=== PATIENT | female | born 1955 | race Caucasian/White ===

== ENCOUNTER 2016-12-11 23:44 | Inpatient (IN) | payer MEDICARE, MEDICAID ==
--- NOTE | 2016-12-12 00:09 | ED Physician Chart ---
Chief Complaint/HPI - Patient Information Date Seen:: 12/12/16 Time Seen:: 00:00 Chief Complaint:: S/P Fall History of Present Illness:: pt had a syncope event resulting in an unwitnessed fall 5 hours [employer] with head injuryl no report of LOC, ALOC, AMS, H/As, neck pain, C/P, SOB, Abd. Pain, A/N/V /D/C, fevsr, chills, or urinary s/s Allergies:: Allergies Allergy/AdvReac Type Severity Reaction Status Date / Time MDX PCN (penicillin) Allergy Unknown Verified 04/13/12 01:04 [PCN (penicillin)] Historian:: Patient, EMS Review:: Nurse's Note Reviewed, EMS run form Reviewed, Transfer documents Reviewed Review of Systems - Review of Systems General/Constitutional: Fever, Chills, No weight loss, No weakness, No diaphoresis, No edema, No loss of appetite Skin: Skin lesions, No rash, No bruising Head: No headache, No light-headedness Eyes: No loss of vision, No pain, No diplopia ENT: No earache, No nasal drainage, No sore throat, No tinnitus Neck: No neck pain, No swelling, No thyromegaly, No stiffness, No mass noted Cardio Vascular: No chest pain, No palpitations, No PND, No orthopnea, No edema Pulmonary: No SOB, No cough, No sputum, No wheezing GI: No nausea, No vomiting, No diarrhea, No pain, No melena, No hematochezia, No constipation, No hematemesis G/U: No dysuria, No frequency, No hematuria Musculoskeletal: No bone or joint pain, No back pain, No muscle pain Endocrine: No polyuria, No polydipsia Psychiatric: Prior psych history, Depression, Anxiety, No suicidal ideation, No homicidal ideation, Auditory hallucination, Visual hallucination Hematopoietic: No bruising, No lymphadenopathy Allergic/Immuno: No urticaria, No angioedema Neurological: Syncope, No focal symptoms, Weakness, No paresthesia, Headache, No seizure, Dizziness, Confusion, Vertigo Past Medical History - Past Medical History Obtainable: Yes Past Medical History: HTN, CAD, Asthma/COPD, Dyslipidemia, Dementia Family History: Heart disease, Diabetes Melitus, HTN Social History: Non Smoker, No Alcohol, No Drug Use, Single, Care Facility Surgical History: None Psychiatricy History: Depression, Schizophrenia, Bipolar, Dementia Medication: Reviewed Family Medical History - Family Member Mother History Unknown: Yes Physical Exam - Physical Examination General/Constitutional: Awake, Well-developed, well-nourished, Alert, No distress, GCS 15, Non-toxic appearing, Ambulatory Other Head comments:: Right Eyebrow Supreficial skin-tear type of abrasions; no FBs; good NV functions Eyes: Lids, conjuctiva normal, PERRL, EOMI Skin: Nl inspection, No rash, No skin lesions, No ecchymosis, Well hydrated, No lymphadenopathy ENMT: External ears, nose nl, Nasal exam nl, Lips, teeth, gums nl Neck: Nontender, Full ROM w/o pain, No JVD, No nuchal rigidity, No bruit, No mass, No stridor Respiratory: Nl effort/Exclusion, Clear to Auscultation, No Wheeze/Rhonchi/Rales Cardio Vascular: RRR, No murmur, gallop, rubs, NL S1 S2 GI: No tenderness/rebounding/guarding, No organomegaly, No hernia, Normal BS's, Nondistended, No mass/bruits, No McBurney tenderness : No CVA tenderness Extremities: No tenderness or effusion, Full ROM, normal strength in all extremities, No edema, Normal digits & nails Neuro/Psych: Alert/oriented, DTR's symmetric, Normal sensory exam, Normal motor strength, Judgement/insight normal, Mood normal, Normal gait, No focal deficits Other Neuro/Psych comments:: Confused and disoriented Misc: normal gait, Normal back, No paraspinal tenderness Labs/Radiology/EKG Results - Lab Results Results: WBC: 3.9; BUN: 32 - EKG Interpretations EKG Time:: 00:33 Rate & Rhythm: 60; NSR Comments:: IVCD; non-specific st-t changes ED Septic Shock - . Is Septic Shock (SBP<90, OR Lactate>4 mmol\L) present?: No Reassessment (Disposition) - Reassessment Reassessment Condition:: Improved - Diagnosis Diagnosis:: S/P Fall; Head Injury; Syncope; - Aftercare/Follow up Instructions Aftercare/Follow-Up Instructions:: Counseled pt regarding lab results/diagnosis & need follow up, Counseled pt & family regarding lab results/diagnosis & need follow up - Patient Disposition Discharge/Transfer:: Acute Care w/in this hosp Admitted to:: Telemetry Condition at Disposition:: Stable, Improved
[2016-12-12 00:33] LABS: % BASOPHILS 0.1 % (0.0-2.0); % EOSINOPHILS 2.1 % (0.0-5.0); % LYMPHOCYTES 43.3 % (20.0-50.0); % MONOCYTES 10.1 % (2.0-10.0); % NEUTROPHILS 44.4 % (40.0-80.0); HEMATOCRIT 40.9 % (35.0-45.0); HEMOGLOBIN 13.5 gm/dL (11.7-15.5); MEAN CELL VOLUME 90.8 fl (81-100); MEAN PLATELET VOLUME 8.6 fl; NEUTROPHILE ABSOLUTE 1.7 Th/cmm (1.8-8.0); PLATELET COUNT 172 Th/cmm (150-400); RED CELL DISTRIBUTION WIDTH 13.5 % (11.5-20.0)
[2016-12-12 00:34] LABS: WHITE BLOOD COUNT 3.9 Th/cmm (4.8-10.8)
[2016-12-12 00:44] LABS: ANION GAP 7.5 (7.0-16.0); BUN - UREA NITROGEN 32 mg/dL (7-25); BUN/CREATININE RATIO 35.6; CALCIUM SERUM 10.1 mg/dL (8.6-10.3); CARBON DIOXIDE 34.1 mEq/L (21.0-31.0); CHLORIDE 100 mEq/L (98-107); CHOLESTEROL 196 mg/dL (<200); CREATININE - SERUM 0.9 mg/dL (0.6-1.2); GLUCOSE 92 mg/dL (70-105); POTASSIUM SERUM 3.6 mEq/L (3.5-5.1); PROTHROMBIN TIME (TEST) 10.4 SECONDS (9.5-11.5); SODIUM SERUM 138 mEq/L (136-145); TRIGLYCERIDES 213 mg/dL (<150)
[2016-12-12 00:59] LABS: TROP I < 0.01 ng/mL (0.01-0.05)
[2016-12-12 01:01] LABS: BNP 31.1 pg/mL (5.0-100.0)
[2016-12-12] MEDS ORDERED: Levofloxacin 500mg/100mL 500 MG/100 ML BAG IV ONE ×2 (01:51→01:54)
[2016-12-12 02:21] LABS: URINE BILIRUBIN NEGATIVE (NEGATIVE); URINE BLOOD NEGATIVE (NEGATIVE); URINE GLUCOSE (UA) NEGATIVE (NEGATIVE); URINE KETONE NEGATIVE (NEGATIVE); URINE PROTEIN NEGATIVE (NEGATIVE)
[2016-12-12 02:23] LABS: URINE COLOR YELLOW
[2016-12-12 02:24] LABS: URINE BACTERIA FEW /hpf (NONE SEEN); URINE EPITHELIAL CELLS FEW /lpf (FEW); URINE RBC 0-2 /hpf (0-5); URINE WBC 0-2 /hpf (0-5)
[2016-12-12 05:54] VITALS: BP 104/65
[2016-12-12] MEDS ORDERED: Ipratropium Neb 0.5 mg/2.5 mL UD IH PRN (07:23)
[2016-12-12] MEDS ORDERED: guaiFENesin 200 MG/10 ML UDC PO PRN (07:23)
[2016-12-12] MEDS ORDERED: Albuterol Nebulizer 2.5mg/3mL HHN PRN (07:23)
[2016-12-12] MEDS ORDERED: FENOFIBRATE 54 MG PO SCH (09:00)
--- NOTE | 2016-12-12 10:00 | Diagnostic Imaging Report ---
CHEST X-RAY: AP view INDICATION: pain COMPARISON: None FINDINGS: Suboptimal lung volumes are seen with increased interstitial lung markings. A right-sided SPOT MAN shunt is noted. No focal consolidation or effusions. Mild cardiomegaly is noted with atherosclerosis. Degenerative changes of the spine are noted with scoliosis. IMPRESSION: Suboptimal lung volumes with increased initial lung markings suggestive of chronic lung changes. No focal consolidation identified. When clinically feasible, PA and lateral views may be obtained for further assessment. Mild cardiomegaly with atherosclerosis Spinal scoliosis.
[2016-12-12] MEDS: Lactulose 10 Gm/15 mL 30mL UDC PO SCH (10:11)
[2016-12-12] MEDS: Multivitamin w/ Minerals Tab PO SCH (10:11)
[2016-12-12] MEDS: Dextromethorphan/Quinidine 20mg/10mg Cap PO SCH ×2 (10:11→21:33)
--- NOTE | 2016-12-12 10:19 | Diagnostic Imaging Report ---
Head CT without intravenous contrast Indication: Trauma Comparison: None Technique: Axial images were obtained from the vertex to the skull base without IV contrast. Coronal reconstructions were made. Total DLP: 551, [id number] FINDINGS: Images of the brain obtained without contrast demonstrate a right frontal approach shunt catheter terminating the within the frontal horn of the left lateral ventricle ventricle. Mild encephalomalacia is seen along the shunt track site. There is no evidence of an acute hemorrhage. The ventricles and basal cisterns are patent. No mass effect or midline shift. There is soft tissue swelling seen along the right frontal scalp. No evidence of a skull fracture. IMPRESSION: Right frontal soft tissue scalp injury. No evidence of a skull fracture. No evidence of an acute intracranial hemorrhage. Right frontal approach shunt catheter with tip terminating within the frontal horn of the left lateral ventricle. No evidence of hydrocephalus Encephalomalacia seen along the shunt tract site.
[2016-12-12] MEDS ORDERED: VTE Chemical Prophylaxis Screen/Admission MC PRN (11:45)
--- NOTE | 2016-12-12 13:12 | Internal Medicine Prog Note ---
Internal Medicine Subjective - Subjective Service Date: 12/12/16 ([facility] [id number]) Internal Medicine Objective - Results Result Diagrams: 12/12/16 00:18 12/12/16 00:18 Recent Labs: Laboratory Last Values WBC 3.9 Th/cmm (4.8-10.8) L D 12/12/16 00:18 RBC 4.50 Mil/cmm (3.80-5.10) 12/12/16 00:18 Hgb 13.5 gm/dL (11.7-15.5) 12/12/16 00:18 Hct 40.9 % (35.0-45.0) 12/12/16 00:18 MCV 90.8 fl (81-100) 12/12/16 00:18 MCH 30.0 pg (27.0-31.0) 12/12/16 00:18 MCHC Differential 33.0 pg (28.0-36.0) 12/12/16 00:18 RDW 13.5 % (11.5-20.0) 12/12/16 00:18 Plt Count 172 Th/cmm (150-400) 12/12/16 00:18 MPV 8.6 fl 12/12/16 00:18 Neutrophils % 44.4 % (40.0-80.0) 12/12/16 00:18 Lymphocytes % 43.3 % (20.0-50.0) 12/12/16 00:18 Monocytes % 10.1 % (2.0-10.0) H 12/12/16 00:18 Eosinophils % 2.1 % (0.0-5.0) 12/12/16 00:18 Basophils % 0.1 % (0.0-2.0) 12/12/16 00:18 PT 10.4 SECONDS (9.5-11.5) 12/12/16 00:18 INR 1.00 (0.5-1.4) 12/12/16 00:18 Sodium 138 mEq/L (136-145) 12/12/16 00:18 Potassium 3.6 mEq/L (3.5-5.1) 12/12/16 00:18 Chloride 100 mEq/L (98-107) 12/12/16 00:18 Carbon Dioxide 34.1 mEq/L (21.0-31.0) H 12/12/16 00:18 Anion Gap 7.5 (7.0-16.0) 12/12/16 00:18 BUN 32 mg/dL (7-25) H 12/12/16 00:18 Creatinine 0.9 mg/dL (0.6-1.2) 12/12/16 00:18 Est GFR ( Amer) > 60.0 ml/min (>90) 12/12/16 00:18 Est GFR (Non-Af Amer) > 60.0 ml/min 12/12/16 00:18 BUN/Creatinine Ratio 35.6 12/12/16 00:18 Glucose 92 mg/dL (70-105) 12/12/16 00:18 Whole Bld Lactic Acid 0.91 mmol/L (0.60-1.99) 12/12/16 00:18 Calcium 10.1 mg/dL (8.6-10.3) 12/12/16 00:18 Creatine Kinase 20 U/L (30-223) L 12/12/16 00:18 Troponin I < 0.01 ng/mL (0.01-0.05) L 12/12/16 00:18 B-Natriuretic Peptide 31.1 pg/mL (5.0-100.0) 12/12/16 00:18 Triglycerides 213 mg/dL (<150) H 12/12/16 00:18 Cholesterol 196 mg/dL (<200) 12/12/16 00:18 LDL Cholesterol Direct 130 mg/dL (75-193) 12/12/16 00:18 HDL Cholesterol 39 mg/dL (23-92) 12/12/16 00:18 Urine Source CLEAN C 12/12/16 02:00 Urine Color YELLOW 12/12/16 02:00 Urine Clarity CLEAR (CLEAR) 12/12/16 02:00 Urine pH 7.0 (4.6 - 8.0) 12/12/16 02:00 Ur Specific [place] 1.010 (1.005-1.030) 12/12/16 02:00 Urine Protein NEGATIVE mg/dL (NEGATIVE) 12/12/16 02:00 Urine Glucose (UA) NEGATIVE mg/dL (NEGATIVE) 12/12/16 02:00 Urine Ketones NEGATIVE mg/dL (NEGATIVE) 12/12/16 02:00 Urine Blood NEGATIVE (NEGATIVE) 12/12/16 02:00 Urine Nitrate NEGATIVE (NEGATIVE) 12/12/16 02:00 Urine Bilirubin NEGATIVE (NEGATIVE) 12/12/16 02:00 Urine Urobilinogen 1.0 E.U./dL (0.2 - 1.0) 12/12/16 02:00 Ur Leukocyte Esterase NEGATIVE (NEGATIVE) 12/12/16 02:00 Urine RBC 0-2 /hpf (0-5) 12/12/16 02:00 Urine WBC 0-2 /hpf (0-5) 12/12/16 02:00 Ur Epithelial Cells FEW /lpf (FEW) 12/12/16 02:00 Urine Bacteria FEW /hpf (NONE SEEN) 12/12/16 02:00 - Physical Exam Vitals and I&O: Vital Signs Temp 97 F 12/12/16 08:00 Pulse 50 12/12/16 08:00 Resp 18 12/12/16 08:00 BP 110/86 12/12/16 08:00 Pulse Ox 98 12/12/16 08:00 Intake & Output 12/11/16 12/12/16 12/12/16 18:59 06:59 18:59 Intake Total 240 Balance 240 Weight (lbs) 148 lb 14.4 oz 148 lb 14.4 oz Intake: Oral 240 Other: # Voids 1 1 # Bowel Movements 0 0 Active Medications: Current Medications Acetaminophen (Tylenol) 650 mg PO Q4H PRN PRN Reason: Pain Or Fever above 101 Stop: 02/10/17 07:22 Albuterol Sulfate (Albuterol 2.5mg/3ml Neb Ud) 2.5 mg HHN Q2HRT PRN PRN Reason: Shortness of Breath or Wheeze Stop: 02/10/17 07:22 Aspirin (Ecotrin) 81 mg PO DAILY [facility] Stop: 02/10/17 08:59 Last Admin: 12/12/16 10:10 Dose: Not Given Benztropine Mesylate (Cogentin) 1 mg PO HS [facility] Stop: 02/10/17 20:59 Cholecalciferol (Vitamin D3) 1,000 iu PO DAILY [facility] Stop: 02/10/17 08:59 Last Admin: 12/12/16 10:10 Dose: Not Given Dextromethorphan/Quinidine (Nuedexta 20mg-10mg) 1 cap PO Q12HR [facility] Stop: 02/10/17 08:59 Last Admin: 12/12/16 10:11 Dose: Not Given Divalproex Sodium (Depakote Dr) 750 mg PO BID [facility] PRN Reason: Protocol Stop: 02/10/17 08:59 Last Admin: 12/12/16 10:11 Dose: Not Given Guaifenesin (Robitussin) 200 mg PO Q4HR PRN PRN Reason: Cough or Congestion Stop: 02/10/17 07:22 Heparin Sodium (Porcine) (Heparin) 5,000 units SUBQ Q12HR [facility] Stop: 02/10/17 20:59 Dextrose/Sodium Chloride (D5-0.9%Ns) 1,000 mls @ 80 mls/hr IV .[id number] [facility] Stop: 02/10/17 07:29 Ipratropium [place] (Atrovent Neb 0.5mg/2.5ml) 0.5 mg IH Q2HRT PRN PRN Reason: Shortness of Breath or Wheeze Stop: 02/10/17 07:22 Lactulose (Cephulac) 20 gm PO DAILY [facility] Stop: 02/10/17 08:59 Last Admin: 12/12/16 10:11 Dose: Not Given Miscellaneous (Fenofibrate [Lofibra]) 54 mg PO DAILY [facility] Stop: 02/10/17 08:59 Last Admin: 12/12/16 10:44 Dose: Not Given Miscellaneous (Vte Chemical Prophylaxis Screen/ Admission) 1 ea [facility] PRN PRN PRN Reason: PROTOCOL Stop: 02/10/17 11:44 Ondansetron HCl (Zofran) 4 mg IV Q8H PRN PRN Reason: Nausea / Vomiting Stop: 02/10/17 07:22 Quetiapine Fumarate (Seroquel) 400 mg PO DAILY [facility] PRN Reason: Protocol Stop: 02/10/17 08:59 Last Admin: 12/12/16 10:10 Dose: 400 mg - Procedures Procedures: Procedures Procedure Code Date INJECT/INFUSE NEC 99.29 04/12/12 Internal Medicine Assmt/Plan - Assessment Assessment: SYNCOPE S/P FALL HYPERLIPIDEMIA COPD HTN ANEMIA MUSCLE WEAKNESS AHD
--- NOTE | 2016-12-12 13:19 | History & Physical ---
ADMIT DATE: 12/12/2016 CHIEF COMPLAINT: Status post fall, syncope. HISTORY OF PRESENT ILLNESS: This is a 61-year-old female who is a resident of [facility], who is brought here to [facility] due to an unwitnessed fall and syncopal episode. The patient was noted with head injury. Upon examination, the patient is awake, confused, combative. PAST MEDICAL HISTORY: COPD, convulsion, hypertension, anemia, muscle weakness, hyperlipidemia. PAST SURGICAL HISTORY: Unknown. SOCIAL HISTORY: The patient is a senior care resident, requiring 24-hour nursing care. REVIEW OF SYSTEMS: Unable to obtain due to patient's mental status. The patient is confused. PHYSICAL EXAMINATION: GENERAL: The patient is well developed, well nourished, no acute distress. VITAL SIGNS: Temperature 97, heart rate 50, blood pressure 110/86, respirations 18, O2 98%. HEENT: Head, normocephalic, atraumatic. NECK: Supple. No mass. LUNGS: Clear bilaterally. CARDIOVASCULAR: Regular rate and rhythm. ABDOMEN: Soft and nontender. LABORATORY DATA: WBC 3.9, H and H 13.5 and 40.9, platelets of 172. Sodium 130, potassium 3.6, chloride 100, BUN 32, creatinine 0.9. The patient had a troponin of 0.01, creatine kinase 20. The patient had a urinalysis done, negative for any UTI. The patient had a CT of the head done and the impression is right frontal soft tissue scalp injury, no evidence occult fracture. The patient also had a chest x-ray done and the impression is suboptimal lung volumes with increased interstitial lung markings suggestive of chronic lung changes, no focal consolidation identified. ASSESSMENT: Syncope, status post fall, hyperlipidemia, hypertension, convulsions, chronic obstructive pulmonary disease, muscle weakness, agitation. PLAN: The patient to have carotid ultrasound done and a 2D echocardiogram to be done. Fall precautions will be initiated. The patient will be kept on IV fluids for hydration. We will order PT eval and will continue to monitor this patient. JOB# [id number]
[2016-12-12] MEDS: Benztropine 1 MG TAB PO SCH (20:49)
[2016-12-13] MEDS: Dextromethorphan/Quinidine 20mg/10mg Cap PO SCH ×2 (09:10→21:46)
[2016-12-13] MEDS: Multivitamin w/ Minerals Tab PO SCH (09:10)
[2016-12-13] MEDS: Lactulose 10 Gm/15 mL 30mL UDC PO SCH (09:10)
[2016-12-13] MEDS: Fenofibrate, Micronized 134 mg Cap PO SCH (09:10)
--- NOTE | 2016-12-13 10:51 | Internal Medicine Prog Note ---
Internal Medicine Subjective - Subjective Service Date: 12/13/16 Patient seen and examined:: with staff Patient is:: awake, agitated, confused Per staff patient has:: no adverse event Internal Medicine Objective - Results Result Diagrams: 12/12/16 00:18 12/12/16 00:18 Recent Labs: Laboratory Last Values WBC 3.9 Th/cmm (4.8-10.8) L D 12/12/16 00:18 RBC 4.50 Mil/cmm (3.80-5.10) 12/12/16 00:18 Hgb 13.5 gm/dL (11.7-15.5) 12/12/16 00:18 Hct 40.9 % (35.0-45.0) 12/12/16 00:18 MCV 90.8 fl (81-100) 12/12/16 00:18 MCH 30.0 pg (27.0-31.0) 12/12/16 00:18 MCHC Differential 33.0 pg (28.0-36.0) 12/12/16 00:18 RDW 13.5 % (11.5-20.0) 12/12/16 00:18 Plt Count 172 Th/cmm (150-400) 12/12/16 00:18 MPV 8.6 fl 12/12/16 00:18 Neutrophils % 44.4 % (40.0-80.0) 12/12/16 00:18 Lymphocytes % 43.3 % (20.0-50.0) 12/12/16 00:18 Monocytes % 10.1 % (2.0-10.0) H 12/12/16 00:18 Eosinophils % 2.1 % (0.0-5.0) 12/12/16 00:18 Basophils % 0.1 % (0.0-2.0) 12/12/16 00:18 PT 10.4 SECONDS (9.5-11.5) 12/12/16 00:18 INR 1.00 (0.5-1.4) 12/12/16 00:18 Sodium 138 mEq/L (136-145) 12/12/16 00:18 Potassium 3.6 mEq/L (3.5-5.1) 12/12/16 00:18 Chloride 100 mEq/L (98-107) 12/12/16 00:18 Carbon Dioxide 34.1 mEq/L (21.0-31.0) H 12/12/16 00:18 Anion Gap 7.5 (7.0-16.0) 12/12/16 00:18 BUN 32 mg/dL (7-25) H 12/12/16 00:18 Creatinine 0.9 mg/dL (0.6-1.2) 12/12/16 00:18 Est GFR ( Amer) > 60.0 ml/min (>90) 12/12/16 00:18 Est GFR (Non-Af Amer) > 60.0 ml/min 12/12/16 00:18 BUN/Creatinine Ratio 35.6 12/12/16 00:18 Glucose 92 mg/dL (70-105) 12/12/16 00:18 Whole Bld Lactic Acid 0.91 mmol/L (0.60-1.99) 12/12/16 00:18 Calcium 10.1 mg/dL (8.6-10.3) 12/12/16 00:18 Creatine Kinase 20 U/L (30-223) L 12/12/16 00:18 Troponin I < 0.01 ng/mL (0.01-0.05) L 12/12/16 00:18 B-Natriuretic Peptide 31.1 pg/mL (5.0-100.0) 12/12/16 00:18 Triglycerides 213 mg/dL (<150) H 12/12/16 00:18 Cholesterol 196 mg/dL (<200) 12/12/16 00:18 LDL Cholesterol Direct 130 mg/dL (75-193) 12/12/16 00:18 HDL Cholesterol 39 mg/dL (23-92) 12/12/16 00:18 Urine Source CLEAN C 12/12/16 02:00 Urine Color YELLOW 12/12/16 02:00 Urine Clarity CLEAR (CLEAR) 12/12/16 02:00 Urine pH 7.0 (4.6 - 8.0) 12/12/16 02:00 Ur Specific [place] 1.010 (1.005-1.030) 12/12/16 02:00 Urine Protein NEGATIVE mg/dL (NEGATIVE) 12/12/16 02:00 Urine Glucose (UA) NEGATIVE mg/dL (NEGATIVE) 12/12/16 02:00 Urine Ketones NEGATIVE mg/dL (NEGATIVE) 12/12/16 02:00 Urine Blood NEGATIVE (NEGATIVE) 12/12/16 02:00 Urine Nitrate NEGATIVE (NEGATIVE) 12/12/16 02:00 Urine Bilirubin NEGATIVE (NEGATIVE) 12/12/16 02:00 Urine Urobilinogen 1.0 E.U./dL (0.2 - 1.0) 12/12/16 02:00 Ur Leukocyte Esterase NEGATIVE (NEGATIVE) 12/12/16 02:00 Urine RBC 0-2 /hpf (0-5) 12/12/16 02:00 Urine WBC 0-2 /hpf (0-5) 12/12/16 02:00 Ur Epithelial Cells FEW /lpf (FEW) 12/12/16 02:00 Urine Bacteria FEW /hpf (NONE SEEN) 12/12/16 02:00 - Physical Exam Vitals and I&O: Vital Signs Temp 98.9 F 12/13/16 06:00 Pulse 104 12/13/16 06:00 Resp 19 12/13/16 06:00 BP 119/78 12/13/16 06:00 Pulse Ox 94 12/13/16 06:00 Intake & Output 12/12/16 12/13/16 12/13/16 18:59 06:59 18:59 Intake Total 240 0 Balance 240 0 Weight (lbs) 148 lb 14.4 oz 148 lb 6.4 oz Intake: Oral 240 0 Other: # Voids 1 1 # Bowel Movements 0 0 Active Medications: Current Medications Acetaminophen (Tylenol) 650 mg PO Q4H PRN PRN Reason: Pain Or Fever above 101 Stop: 02/10/17 07:22 Albuterol Sulfate (Albuterol 2.5mg/3ml Neb Ud) 2.5 mg HHN Q2HRT PRN PRN Reason: Shortness of Breath or Wheeze Stop: 02/10/17 07:22 Aspirin (Ecotrin) 81 mg PO DAILY [facility] Stop: 02/10/17 08:59 Last Admin: 12/13/16 09:10 Dose: Not Given Benztropine Mesylate (Cogentin) 1 mg PO HS [facility] Stop: 02/10/17 20:59 Last Admin: 12/12/16 20:49 Dose: 1 mg Cholecalciferol (Vitamin D3) 1,000 iu PO DAILY [facility] Stop: 02/10/17 08:59 Last Admin: 12/13/16 09:10 Dose: Not Given Dextromethorphan/Quinidine (Nuedexta 20mg-10mg) 1 cap PO Q12HR [facility] Stop: 02/10/17 08:59 Last Admin: 12/13/16 09:10 Dose: Not Given Divalproex Sodium (Depakote Dr) 750 mg PO BID [facility] PRN Reason: Protocol Stop: 02/10/17 08:59 Last Admin: 12/13/16 09:10 Dose: Not Given Fenofibrate (Tricor) 134 mg PO QOD [facility] Stop: 02/10/17 08:59 Last Admin: 12/13/16 09:10 Dose: Not Given Guaifenesin (Robitussin) 200 mg PO Q4HR PRN PRN Reason: Cough or Congestion Stop: 02/10/17 07:22 Heparin Sodium (Porcine) (Heparin) 5,000 units SUBQ Q12HR [facility] Stop: 02/10/17 20:59 Last Admin: 12/13/16 09:11 Dose: Not Given Dextrose/Sodium Chloride (D5-0.9%Ns) 1,000 mls @ 80 mls/hr IV .[id number] [facility] Stop: 02/10/17 07:29 Ipratropium [place] (Atrovent Neb 0.5mg/2.5ml) 0.5 mg IH Q2HRT PRN PRN Reason: Shortness of Breath or Wheeze Stop: 02/10/17 07:22 Lactulose (Cephulac) 20 gm PO DAILY [facility] Stop: 02/10/17 08:59 Last Admin: 12/13/16 09:10 Dose: Not Given Lorazepam (Ativan) 1 mg IVP Q4HR PRN; Protocol PRN Reason: Agitation Stop: 02/11/17 06:15 Last Admin: 12/13/16 06:32 Dose: 1 mg Miscellaneous (Vte Chemical Prophylaxis Screen/ Admission) 1 ea [facility] PRN PRN PRN Reason: PROTOCOL Stop: 02/10/17 11:44 Ondansetron HCl (Zofran) 4 mg IV Q8H PRN PRN Reason: Nausea / Vomiting Stop: 02/10/17 07:22 Quetiapine Fumarate (Seroquel) 400 mg PO DAILY [facility] PRN Reason: Protocol Stop: 02/10/17 08:59 Last Admin: 12/13/16 09:10 Dose: 400 mg Trazodone HCl (Desyrel) 100 mg PO HS [facility] PRN Reason: Protocol Stop: 02/10/17 20:59 Last Admin: 12/12/16 20:49 Dose: 100 mg General: alert HEENT: NC/AT, PERRLA Neck: Supple Lungs: CTAB Cardiovascular: RRR, Normal S1, Normal S2 Abdomen: soft, non-tender, non-distended Neurological: alert - Procedures Procedures: Procedures Procedure Code Date INJECT/INFUSE NEC 99.29 04/12/12 Internal Medicine Assmt/Plan - Assessment Assessment: SYNCOPE S/P FALL HYPERLIPIDEMIA COPD HTN ANEMIA MUSCLE WEAKNESS AHD - Plan Plan: fall precautions psych f/u supplemental oxygen as needed bronchodilators as needed sitter for safety am labs
[2016-12-13 11:31] LABS: % BASOPHILS 0.9 % (0.0-2.0); % EOSINOPHILS 1.4 % (0.0-5.0); % LYMPHOCYTES 24.5 % (20.0-50.0); % NEUTROPHILS 62.2 % (40.0-80.0); HEMATOCRIT 39.7 % (35.0-45.0); HEMOGLOBIN 13.5 gm/dL (11.7-15.5); MEAN CELL VOLUME 88.5 fl (81-100); MEAN CORPUSCULAR HGB CONC 33.9 pg (28.0-36.0); MEAN PLATELET VOLUME 8.6 fl; NEUTROPHILE ABSOLUTE 2.5 Th/cmm (1.8-8.0); PLATELET COUNT 138 Th/cmm (150-400); RED BLOOD COUNT 4.49 Mil/cmm (3.80-5.10); RED CELL DISTRIBUTION WIDTH 13.2 % (11.5-20.0)
[2016-12-13 11:51] LABS: ANION GAP 7.9 (7.0-16.0); BUN - UREA NITROGEN 28 mg/dL (7-25); BUN/CREATININE RATIO 31.1; CALCIUM SERUM 9.9 mg/dL (8.6-10.3); CARBON DIOXIDE 27.8 mEq/L (21.0-31.0); CHLORIDE 105 mEq/L (98-107); CREATININE - SERUM 0.9 mg/dL (0.6-1.2); GLUCOSE 83 mg/dL (70-105); POTASSIUM SERUM 3.7 mEq/L (3.5-5.1); SODIUM SERUM 137 mEq/L (136-145)
[2016-12-13] MEDS: Benztropine 1 MG TAB PO SCH (21:45)
[2016-12-14 07:32] LABS: % BASOPHILS 2.2 % (0.0-2.0); % EOSINOPHILS 2.3 % (0.0-5.0); % LYMPHOCYTES 29.3 % (20.0-50.0); % MONOCYTES 10.1 % (2.0-10.0); % NEUTROPHILS 56.1 % (40.0-80.0); HEMATOCRIT 44.3 % (35.0-45.0); HEMOGLOBIN 14.8 gm/dL (11.7-15.5); MEAN CELL VOLUME 89.7 fl (81-100); MEAN CORPUSCULAR HEMOGLOBIN 29.9 pg (27.0-31.0); MEAN CORPUSCULAR HGB CONC 33.3 pg (28.0-36.0); MEAN PLATELET VOLUME 8.6 fl; NEUTROPHILE ABSOLUTE 2.5 Th/cmm (1.8-8.0); PLATELET COUNT 168 Th/cmm (150-400); RED BLOOD COUNT 4.94 Mil/cmm (3.80-5.10); RED CELL DISTRIBUTION WIDTH 13.4 % (11.5-20.0); WHITE BLOOD COUNT 4.4 Th/cmm (4.8-10.8)
[2016-12-14 07:48] LABS: ANION GAP 7.1 (7.0-16.0); BUN - UREA NITROGEN 26 mg/dL (7-25); CALCIUM SERUM 10.3 mg/dL (8.6-10.3); CARBON DIOXIDE 30.9 mEq/L (21.0-31.0); CHLORIDE 100 mEq/L (98-107); GLUCOSE 90 mg/dL (70-105); SODIUM SERUM 134 mEq/L (136-145)
[2016-12-14] MEDS: Dextromethorphan/Quinidine 20mg/10mg Cap PO SCH ×2 (09:02→21:10)
[2016-12-14] MEDS: Lactulose 10 Gm/15 mL 30mL UDC PO SCH (09:03)
[2016-12-14] MEDS: Multivitamin w/ Minerals Tab PO SCH (09:03)
--- NOTE | 2016-12-14 09:57 | Diagnostic Imaging Report ---
Exam: Arterial ultrasound examination of the extracranial carotid circulation. HISTORY: Stenosis. Findings: Real-time ultrasound examination of the extracranial carotid circulation was performed multiple planes utilizing color Doppler technique. The study demonstrates mild atherosclerotic plaque formation along the course of common carotid arteries bilaterally arising into the origin internal and external carotid arteries bilaterally. Mild to moderate plaquing is noted and cord bulbs bilaterally. The right internal carotid artery ratio 1.5 the left internal carotid artery ratio 0.84. IMPRESSION: No significant stenosis or alteration of flow of the extracranial carotid circulation bilaterally.
--- NOTE | 2016-12-14 12:21 | Consultation ---
DATE OF CONSULTATION: 12/14/2016 JUSTIFICATION FOR CONSULTATION: Behaviors. HISTORY OF PRESENT ILLNESS: A 61-year-old female coming from [facility]. The patient apparently has syncopal episode, unwitnessed fall, head injury. On [id number], the patient is agitated, noted to be aggressive, calling me bad names, does not know why she is here, what she is doing here, the year, the month. PAST PSYCHIATRIC HISTORY: Likely schizophrenia, also noted to have dementia. SOCIAL HISTORY: Not answering, aggressive, _loud___, coming from [facility]. FAMILY HISTORY: Unknown. MENTAL STATUS EXAMINATION: Stated age, unkempt. She has a wound on her forehead from the fall. Speech mumbling. Mood "okay." Affect flat. Thought processes were confused, disoriented and no overt SI or HI, but she does appear to be paranoid, responding to internal stimuli, poor insight. Poor judgment. Poor impulse control. PROVISIONAL DIAGNOSIS: Likely schizophrenia and possibly bipolar. MEDICAL: Please see full H and P. RECOMMENDATIONS AND PLAN: The patient is presenting with behaviors, aggressive agitation, yelling and screaming episodes. PLAN: We will continue to adjust and titrate her medications. The patient will likely benefit from medication adjustments, increase her Seroquel for example. We will monitor and followup. JOB# [id number] [facility]
--- NOTE | 2016-12-14 15:41 | Internal Medicine Prog Note ---
Internal Medicine Subjective - Subjective Patient seen and examined:: with staff, chart reviewed Patient is:: awake, verbal, interactive, agitated, confused Per staff patient has:: no adverse event, no episodes of fall, unstable gait, agitated, combative, noncompliant, confused, tolerating meds Internal Medicine Objective - Results Result Diagrams: 12/14/16 07:20 12/14/16 07:20 Recent Labs: Laboratory Last Values WBC 4.4 Th/cmm (4.8-10.8) L 12/14/16 07:20 RBC 4.94 Mil/cmm (3.80-5.10) 12/14/16 07:20 Hgb 14.8 gm/dL (11.7-15.5) 12/14/16 07:20 Hct 44.3 % (35.0-45.0) D 12/14/16 07:20 MCV 89.7 fl (81-100) 12/14/16 07:20 MCH 29.9 pg (27.0-31.0) 12/14/16 07:20 MCHC Differential 33.3 pg (28.0-36.0) 12/14/16 07:20 RDW 13.4 % (11.5-20.0) 12/14/16 07:20 Plt Count 168 Th/cmm (150-400) D 12/14/16 07:20 MPV 8.6 fl 12/14/16 07:20 Neutrophils % 56.1 % (40.0-80.0) 12/14/16 07:20 Lymphocytes % 29.3 % (20.0-50.0) 12/14/16 07:20 Monocytes % 10.1 % (2.0-10.0) H 12/14/16 07:20 Eosinophils % 2.3 % (0.0-5.0) 12/14/16 07:20 Basophils % 2.2 % (0.0-2.0) H 12/14/16 07:20 PT 10.4 SECONDS (9.5-11.5) 12/12/16 00:18 INR 1.00 (0.5-1.4) 12/12/16 00:18 Sodium 134 mEq/L (136-145) L 12/14/16 07:20 Potassium 4.0 mEq/L (3.5-5.1) 12/14/16 07:20 Chloride 100 mEq/L (98-107) 12/14/16 07:20 Carbon Dioxide 30.9 mEq/L (21.0-31.0) 12/14/16 07:20 Anion Gap 7.1 (7.0-16.0) 12/14/16 07:20 BUN 26 mg/dL (7-25) H 12/14/16 07:20 Creatinine 1.0 mg/dL (0.6-1.2) 12/14/16 07:20 Est GFR ( Amer) > 60.0 ml/min (>90) 12/14/16 07:20 Est GFR (Non-Af Amer) 59.9 ml/min 12/14/16 07:20 BUN/Creatinine Ratio 26.0 12/14/16 07:20 Glucose 90 mg/dL (70-105) 12/14/16 07:20 Whole Bld Lactic Acid 0.91 mmol/L (0.60-1.99) 12/12/16 00:18 Calcium 10.3 mg/dL (8.6-10.3) 12/14/16 07:20 Creatine Kinase 20 U/L (30-223) L 12/12/16 00:18 Troponin I < 0.01 ng/mL (0.01-0.05) L 12/12/16 00:18 B-Natriuretic Peptide 31.1 pg/mL (5.0-100.0) 12/12/16 00:18 Triglycerides 213 mg/dL (<150) H 12/12/16 00:18 Cholesterol 196 mg/dL (<200) 12/12/16 00:18 LDL Cholesterol Direct 130 mg/dL (75-193) 12/12/16 00:18 HDL Cholesterol 39 mg/dL (23-92) 12/12/16 00:18 Urine Source CLEAN C 12/12/16 02:00 Urine Color YELLOW 12/12/16 02:00 Urine Clarity CLEAR (CLEAR) 12/12/16 02:00 Urine pH 7.0 (4.6 - 8.0) 12/12/16 02:00 Ur Specific [place] 1.010 (1.005-1.030) 12/12/16 02:00 Urine Protein NEGATIVE mg/dL (NEGATIVE) 12/12/16 02:00 Urine Glucose (UA) NEGATIVE mg/dL (NEGATIVE) 12/12/16 02:00 Urine Ketones NEGATIVE mg/dL (NEGATIVE) 12/12/16 02:00 Urine Blood NEGATIVE (NEGATIVE) 12/12/16 02:00 Urine Nitrate NEGATIVE (NEGATIVE) 12/12/16 02:00 Urine Bilirubin NEGATIVE (NEGATIVE) 12/12/16 02:00 Urine Urobilinogen 1.0 E.U./dL (0.2 - 1.0) 12/12/16 02:00 Ur Leukocyte Esterase NEGATIVE (NEGATIVE) 12/12/16 02:00 Urine RBC 0-2 /hpf (0-5) 12/12/16 02:00 Urine WBC 0-2 /hpf (0-5) 12/12/16 02:00 Ur Epithelial Cells FEW /lpf (FEW) 12/12/16 02:00 Urine Bacteria FEW /hpf (NONE SEEN) 12/12/16 02:00 - Physical Exam Vitals and I&O: Vital Signs Temp 99.2 F 12/14/16 12:00 Pulse 108 12/14/16 12:00 Resp 18 12/14/16 12:00 BP 92/62 12/14/16 12:00 Pulse Ox 98 12/14/16 12:00 Intake & Output 12/13/16 12/14/16 12/14/16 18:59 06:59 18:59 Intake Total 800 Balance 800 Weight (lbs) 67.313 kg 67.132 kg Intake: Oral 800 Other: # Voids 2 Active Medications: Current Medications Acetaminophen (Tylenol) 650 mg PO Q4H PRN PRN Reason: Pain Or Fever above 101 Stop: 02/10/17 07:22 Albuterol Sulfate (Albuterol 2.5mg/3ml Neb Ud) 2.5 mg HHN Q2HRT PRN PRN Reason: Shortness of Breath or Wheeze Stop: 02/10/17 07:22 Aspirin (Ecotrin) 81 mg PO DAILY [facility] Stop: 02/10/17 08:59 Last Admin: 12/14/16 09:02 Dose: 81 mg Benztropine Mesylate (Cogentin) 1 mg PO HS [facility] Stop: 02/10/17 20:59 Last Admin: 12/13/16 21:45 Dose: Not Given Cholecalciferol (Vitamin D3) 1,000 iu PO DAILY [facility] Stop: 02/10/17 08:59 Last Admin: 12/14/16 09:02 Dose: 1,000 iu Dextromethorphan/Quinidine (Nuedexta 20mg-10mg) 1 cap PO Q12HR [facility] Stop: 02/10/17 08:59 Last Admin: 12/14/16 09:02 Dose: 1 cap Divalproex Sodium (Depakote Dr) 750 mg PO BID [facility] PRN Reason: Protocol Stop: 02/10/17 08:59 Last Admin: 12/14/16 09:27 Dose: 750 mg Fenofibrate (Tricor) 134 mg PO QOD [facility] Stop: 02/10/17 08:59 Last Admin: 12/13/16 09:10 Dose: Not Given Guaifenesin (Robitussin) 200 mg PO Q4HR PRN PRN Reason: Cough or Congestion Stop: 02/10/17 07:22 Heparin Sodium (Porcine) (Heparin) 5,000 units SUBQ Q12HR [facility] Stop: 02/10/17 20:59 Last Admin: 12/14/16 09:01 Dose: 5,000 units Dextrose/Sodium Chloride (D5-0.9%Ns) 1,000 mls @ 80 mls/hr IV .[id number] [facility] Stop: 02/10/17 07:29 Ipratropium [place] (Atrovent Neb 0.5mg/2.5ml) 0.5 mg IH Q2HRT PRN PRN Reason: Shortness of Breath or Wheeze Stop: 02/10/17 07:22 Lactulose (Cephulac) 20 gm PO DAILY [facility] Stop: 02/10/17 08:59 Last Admin: 12/14/16 09:03 Dose: 20 gm Lorazepam (Ativan) 1 mg IVP Q4HR PRN; Protocol PRN Reason: Agitation Stop: 02/11/17 06:15 Last Admin: 12/14/16 08:40 Dose: 1 mg Miscellaneous (Vte Chemical Prophylaxis Screen/ Admission) 1 ea [facility] PRN PRN PRN Reason: PROTOCOL Stop: 02/10/17 11:44 Mupirocin (Bactroban Oint) 1 appl NS BID [facility] Stop: 12/18/16 09:01 Last Admin: 12/14/16 09:01 Dose: 1 appl Ondansetron HCl (Zofran) 4 mg IV Q8H PRN PRN Reason: Nausea / Vomiting Stop: 02/10/17 07:22 Quetiapine Fumarate (Seroquel) 400 mg PO DAILY [facility] PRN Reason: Protocol Stop: 02/10/17 08:59 Last Admin: 12/14/16 09:02 Dose: 400 mg Quetiapine Fumarate (Seroquel) 25 mg PO BID [facility] PRN Reason: Protocol Stop: 02/12/17 08:59 Trazodone HCl (Desyrel) 100 mg PO HS [facility] PRN Reason: Protocol Stop: 02/10/17 20:59 Last Admin: 12/13/16 21:46 Dose: Not Given General: alert, appears older HEENT: NC/AT, PERRLA Neck: Supple, No LAD Lungs: CTAB Cardiovascular: RRR, Normal S1, Normal S2 Abdomen: soft, non-tender, non-distended Extremities: excoriation Neurological: alert, muscle weakness, unable to follow command - Procedures Procedures: Procedures Procedure Code Date INJECT/INFUSE NEC 99.29 04/12/12 Internal Medicine Assmt/Plan - Assessment Assessment: SYNCOPE S/P FALL HYPERLIPIDEMIA COPD HTN ANEMIA MUSCLE WEAKNESS AHD - Plan Plan: cont on ivf on 1;1 sitter neuro work up on going cpm edinson wilcox
[2016-12-14] MEDS: Benztropine 1 MG TAB PO SCH (21:10)
[2016-12-14] MEDS: D5-0.9%NS 1,000 ML IV SCH (21:10)
--- NOTE | 2016-12-14 21:40 | Admit Criteria Form ---
Admit Criteria Forms - Admit Criteria Diagnosis: TELEMETRY CARE Telemetry Admission Guidelines (Place 'X' for any and all applicable criteria): Admission to telemetry [A] may be indicated for ANY ONE of the following(1)(2)(3 )(4)(5): [ ]I. Cardiac disease, including ANY ONE of the following (9)(10)(11)(12)(13 ): [ ]a) Postacute VT [ ]b) Low-risk patients with ST-segment elevation VT who have undergone successful percutaneous coronary intervention [ ]c) Unstable angina [ ]d) Suspected VT (until it is ruled out) [ ]e) Post cardiac surgery (first 48 to 72 hours unless complications occur) [ ]f) Acute arrhythmias (including significant tachycardia or bradycardia) [B] [ ]g) Firing of an implantable cardioverter defibrillator [C] [ ]h) Suspected pacemaker or implantable cardioverter defibrillator malfunction (10) [ ]i) New administration or adjustment of an antiarrhythmic drug [D ] [ ]j) Child admitted for acute congestive heart failure [ ]j) Long QT syndrome [ ]k) Advanced heart block (eg, second-degree Mobitz type II, third- degree heart block) [ ]l) Acute myocarditis or pericarditis [ ]m) Short-term (ambulatory or inpatient) monitoring after a cardiac procedure as indicated by ANY ONE of the following [E]: [ ]i) Electrophysiologic studies [ ]ii) Percutaneous coronary intervention with stent placement [ ]iii) Pacemaker placement with cardiac conduction defect [ ]iv) Implantable cardiac defibrillator placement [ ]II. Drug overdose or poisoning with substance that causes arrhythmias or QT prolongation (eg, phenothiazines, sympathomimetic agents, cyclic antidepressants, digitalis, antiarrhythmic drugs)(15) [ ]III. Short-term (ambulatory or inpatient) monitoring after therapeutic or diagnostic procedure requiring conscious sedation or anesthesia (eg, endoscopy, elective cardioversion) [ ]IV. Acute cerebrovascular even[F](18) [ ]V. Massive blood transfusion (eg, at least 10 units of packed red blood cells in 24 hours) [ ]. Variceal bleeding after endoscopy, sclerotherapy, or IV vasopressin [ ]VII. Uncorrected electrolyte abnormalities associated with an increased risk of dangerous arrhythmia [G]; examples include [ ]a) Hyperkalemia with attributable ECG changes [ ]b) Potassium greater than 6.5 mmol/L (mEq/L) in a patient without history of chronic renal disease [ ]c) Prolonged QT attributed to hypokalemia, hypomagnesemia, or hypocalcemia [X ]VIII.Unexplained syncope or other neurologic event suspected of being due to arrhythmia due to a finding that increases risk; examples include(19)(20)(21): [ ]a) High-risk ECG findings (eg, bifascicular block, bradycardia, abnormal QT interval, ventricular pre- excitation) [ ]b) History of previous syncope due to arrhythmia [ ]c) Abnormal ventricular function (eg, reduced ejection fraction ) [ ]d) Exertional or supine syncope [ X]e) Concerning syncope characteristics (eg, sudden loss of consciousness without prodrome) [ ]f) Family history of sudden [ ]g) Use of arrhythmogenic medication [ ]h) Suspected cardiac ischemia [ ]i) Known channelopathy (eg, long QT syndrome, Brugada syndrome, or catecholaminergic paroxysmal ventricular tachycardia) [ ]j) Known structural heart disease (eg, hypertrophic cardiomyopathy , severe valvular disease) [ ]k) Palpitations preceding syncope The original [employer] content created by [employer] has been revised. The portions of the content which have been revised are identified through the use of italic text or in bold, and [employer] [facility] [employer] has neither reviewed nor approved the modified material. All other unmodified content is copyright [employer]. Please see references footnoted in the original [employer] edition 2016 Admit Criteria Met?: Yes
[2016-12-15] MEDS: Lactulose 10 Gm/15 mL 30mL UDC PO SCH (08:26)
[2016-12-15] MEDS: Dextromethorphan/Quinidine 20mg/10mg Cap PO SCH ×2 (08:27→21:31)
[2016-12-15] MEDS: Multivitamin w/ Minerals Tab PO SCH (08:28)
[2016-12-15] MEDS: Fenofibrate, Micronized 134 mg Cap PO SCH (08:28)
--- NOTE | 2016-12-15 20:39 | Progress Notes ---
DATE: 12/15/2016 SUBJECTIVE: A 61-year-old female, agitated, aggressive, yelling, screaming, nonsensical difficult to control. She has a sitter, unstable from a psychiatric perspective. PAST PSYCHIATRIC HISTORY: Schizophrenia, likely dementia. MENTAL STATUS EXAMINATION: Stated age, unkempt, yelling, screaming, mumbling nonsensical, disoriented, psychomotorically accelerated. PROVISIONAL DIAGNOSIS: Schizophrenia, possibly bipolar, rule out dementia. RECOMMENDATIONS AND PLAN: The patient is not stable. The patient will need medication adjustments at this time. She is on Seroquel 400 mg daily and also Seroquel 25 mg twice daily, and also Cogentin and also Ativan. The patient remains symptomatic, still with episodes, not stable at this time. [facility]# [id number]
[2016-12-15] MEDS: Benztropine 1 MG TAB PO SCH (21:31)
--- NOTE | 2016-12-15 21:31 | Internal Medicine Prog Note ---
Internal Medicine Subjective - Subjective Patient seen and examined:: with staff, chart reviewed Patient is:: awake, verbal, interactive, agitated, confused Per staff patient has:: no adverse event, no episodes of fall, unstable gait, agitated, combative, noncompliant, confused, tolerating meds Internal Medicine Objective - Results Result Diagrams: 12/14/16 07:20 12/14/16 07:20 Recent Labs: Laboratory Last Values WBC 4.4 Th/cmm (4.8-10.8) L 12/14/16 07:20 RBC 4.94 Mil/cmm (3.80-5.10) 12/14/16 07:20 Hgb 14.8 gm/dL (11.7-15.5) 12/14/16 07:20 Hct 44.3 % (35.0-45.0) D 12/14/16 07:20 MCV 89.7 fl (81-100) 12/14/16 07:20 MCH 29.9 pg (27.0-31.0) 12/14/16 07:20 MCHC Differential 33.3 pg (28.0-36.0) 12/14/16 07:20 RDW 13.4 % (11.5-20.0) 12/14/16 07:20 Plt Count 168 Th/cmm (150-400) D 12/14/16 07:20 MPV 8.6 fl 12/14/16 07:20 Neutrophils % 56.1 % (40.0-80.0) 12/14/16 07:20 Lymphocytes % 29.3 % (20.0-50.0) 12/14/16 07:20 Monocytes % 10.1 % (2.0-10.0) H 12/14/16 07:20 Eosinophils % 2.3 % (0.0-5.0) 12/14/16 07:20 Basophils % 2.2 % (0.0-2.0) H 12/14/16 07:20 PT 10.4 SECONDS (9.5-11.5) 12/12/16 00:18 INR 1.00 (0.5-1.4) 12/12/16 00:18 Sodium 134 mEq/L (136-145) L 12/14/16 07:20 Potassium 4.0 mEq/L (3.5-5.1) 12/14/16 07:20 Chloride 100 mEq/L (98-107) 12/14/16 07:20 Carbon Dioxide 30.9 mEq/L (21.0-31.0) 12/14/16 07:20 Anion Gap 7.1 (7.0-16.0) 12/14/16 07:20 BUN 26 mg/dL (7-25) H 12/14/16 07:20 Creatinine 1.0 mg/dL (0.6-1.2) 12/14/16 07:20 Est GFR ( Amer) > 60.0 ml/min (>90) 12/14/16 07:20 Est GFR (Non-Af Amer) 59.9 ml/min 12/14/16 07:20 BUN/Creatinine Ratio 26.0 12/14/16 07:20 Glucose 90 mg/dL (70-105) 12/14/16 07:20 Whole Bld Lactic Acid 0.91 mmol/L (0.60-1.99) 12/12/16 00:18 Calcium 10.3 mg/dL (8.6-10.3) 12/14/16 07:20 Creatine Kinase 20 U/L (30-223) L 12/12/16 00:18 Troponin I < 0.01 ng/mL (0.01-0.05) L 12/12/16 00:18 B-Natriuretic Peptide 31.1 pg/mL (5.0-100.0) 12/12/16 00:18 Triglycerides 213 mg/dL (<150) H 12/12/16 00:18 Cholesterol 196 mg/dL (<200) 12/12/16 00:18 LDL Cholesterol Direct 130 mg/dL (75-193) 12/12/16 00:18 HDL Cholesterol 39 mg/dL (23-92) 12/12/16 00:18 Urine Source CLEAN C 12/12/16 02:00 Urine Color YELLOW 12/12/16 02:00 Urine Clarity CLEAR (CLEAR) 12/12/16 02:00 Urine pH 7.0 (4.6 - 8.0) 12/12/16 02:00 Ur Specific [place] 1.010 (1.005-1.030) 12/12/16 02:00 Urine Protein NEGATIVE mg/dL (NEGATIVE) 12/12/16 02:00 Urine Glucose (UA) NEGATIVE mg/dL (NEGATIVE) 12/12/16 02:00 Urine Ketones NEGATIVE mg/dL (NEGATIVE) 12/12/16 02:00 Urine Blood NEGATIVE (NEGATIVE) 12/12/16 02:00 Urine Nitrate NEGATIVE (NEGATIVE) 12/12/16 02:00 Urine Bilirubin NEGATIVE (NEGATIVE) 12/12/16 02:00 Urine Urobilinogen 1.0 E.U./dL (0.2 - 1.0) 12/12/16 02:00 Ur Leukocyte Esterase NEGATIVE (NEGATIVE) 12/12/16 02:00 Urine RBC 0-2 /hpf (0-5) 12/12/16 02:00 Urine WBC 0-2 /hpf (0-5) 12/12/16 02:00 Ur Epithelial Cells FEW /lpf (FEW) 12/12/16 02:00 Urine Bacteria FEW /hpf (NONE SEEN) 12/12/16 02:00 - Physical Exam Vitals and I&O: Vital Signs Temp 98 F 12/15/16 20:00 Pulse 60 12/15/16 20:00 Resp 18 12/15/16 20:00 BP 100/50 12/15/16 20:00 Pulse Ox 95 12/15/16 20:00 Intake & Output 12/15/16 12/15/16 12/16/16 06:59 18:59 06:59 Intake Total 500 Balance 500 Weight (lbs) 66.678 kg 66.678 kg Intake: Oral 500 Other: # Voids 3 # Bowel Movements 0 Stool Characteristics Formed Formed [place] Brown Active Medications: Current Medications Acetaminophen (Tylenol) 650 mg PO Q4H PRN PRN Reason: Pain Or Fever above 101 Stop: 02/10/17 07:22 Albuterol Sulfate (Albuterol 2.5mg/3ml Neb Ud) 2.5 mg HHN Q2HRT PRN PRN Reason: Shortness of Breath or Wheeze Stop: 02/10/17 07:22 Aspirin (Ecotrin) 81 mg PO DAILY [facility] Stop: 02/10/17 08:59 Last Admin: 12/15/16 08:27 Dose: 81 mg Benztropine Mesylate (Cogentin) 1 mg PO HS [facility] Stop: 02/10/17 20:59 Last Admin: 12/14/16 21:10 Dose: 1 mg Cholecalciferol (Vitamin D3) 1,000 iu PO DAILY [facility] Stop: 02/10/17 08:59 Last Admin: 12/15/16 08:28 Dose: 1,000 iu Clonazepam (Klonopin) 1 mg PO BID [facility] PRN Reason: Protocol Stop: 02/13/17 08:59 Dextromethorphan/Quinidine (Nuedexta 20mg-10mg) 1 cap PO Q12HR [facility] Stop: 02/10/17 08:59 Last Admin: 12/15/16 08:27 Dose: 1 cap Divalproex Sodium (Depakote Dr) 750 mg PO BID [facility] PRN Reason: Protocol Stop: 02/10/17 08:59 Last Admin: 12/15/16 16:04 Dose: 750 mg Fenofibrate (Tricor) 134 mg PO QOD [facility] Stop: 02/10/17 08:59 Last Admin: 12/15/16 08:28 Dose: 134 mg Guaifenesin (Robitussin) 200 mg PO Q4HR PRN PRN Reason: Cough or Congestion Stop: 02/10/17 07:22 Haloperidol (Haldol) 2 mg PO TID [facility] PRN Reason: Protocol Stop: 02/13/17 08:59 Last Admin: 12/15/16 13:24 Dose: 2 mg Heparin Sodium (Porcine) (Heparin) 5,000 units SUBQ Q12HR [facility] Stop: 02/10/17 20:59 Last Admin: 12/15/16 08:26 Dose: 5,000 units Dextrose/Sodium Chloride (D5-0.9%Ns) 1,000 mls @ 80 mls/hr IV .[id number] [facility] Stop: 02/10/17 07:29 Last Admin: 12/14/16 21:10 Dose: 80 mls/hr Ipratropium [place] (Atrovent Neb 0.5mg/2.5ml) 0.5 mg IH Q2HRT PRN PRN Reason: Shortness of Breath or Wheeze Stop: 02/10/17 07:22 Lactulose (Cephulac) 20 gm PO DAILY [facility] Stop: 02/10/17 08:59 Last Admin: 12/15/16 08:26 Dose: 20 gm Lorazepam (Ativan) 1 mg IVP Q4HR PRN; Protocol PRN Reason: Agitation Stop: 02/11/17 06:15 Last Admin: 12/14/16 08:40 Dose: 1 mg Miscellaneous (Vte Chemical Prophylaxis Screen/ Admission) 1 ea [facility] PRN PRN PRN Reason: PROTOCOL Stop: 02/10/17 11:44 Mupirocin (Bactroban Oint) 1 appl NS BID [facility] Stop: 12/18/16 09:01 Last Admin: 12/15/16 16:05 Dose: 1 appl Ondansetron HCl (Zofran) 4 mg IV Q8H PRN PRN Reason: Nausea / Vomiting Stop: 02/10/17 07:22 Quetiapine Fumarate (Seroquel) 200 mg PO BID [facility] PRN Reason: Protocol Stop: 02/13/17 08:59 Last Admin: 12/15/16 16:04 Dose: 200 mg Trazodone HCl (Desyrel) 100 mg PO HS [facility] PRN Reason: Protocol Stop: 02/10/17 20:59 Last Admin: 12/14/16 21:10 Dose: 100 mg General: alert, appears older HEENT: NC/AT, PERRLA Neck: Supple, No LAD Lungs: CTAB Cardiovascular: RRR, Normal S1, Normal S2 Abdomen: soft, non-tender, non-distended Extremities: excoriation Neurological: alert, muscle weakness, unable to follow command - Procedures Procedures: Procedures Procedure Code Date INJECT/INFUSE NEC 99.29 04/12/12 Internal Medicine Assmt/Plan - Assessment Assessment: SYNCOPE S/P FALL HYPERLIPIDEMIA COPD HTN ANEMIA MUSCLE WEAKNESS AHD - Plan Plan: cont on ivf on 1;1 sitter neuro work up on going cpm edinson rn
[2016-12-16] MEDS: D5-0.9%NS 1,000 ML IV SCH (04:06)
[2016-12-16] MEDS: Multivitamin w/ Minerals Tab PO SCH (09:04)
[2016-12-16] MEDS: Lactulose 10 Gm/15 mL 30mL UDC PO SCH (09:05)
[2016-12-16] MEDS: Dextromethorphan/Quinidine 20mg/10mg Cap PO SCH (09:05)
--- NOTE | 2016-12-16 12:24 | Internal Medicine Prog Note ---
Internal Medicine Subjective - Subjective Service Date: 12/16/16 (dc summary [id number]) Patient is:: awake, verbal, interactive, agitated, confused Per staff patient has:: no adverse event, no episodes of fall, unstable gait, agitated, combative, noncompliant, confused, tolerating meds Internal Medicine Objective - Results Result Diagrams: 12/14/16 07:20 12/14/16 07:20 Recent Labs: Laboratory Last Values WBC 4.4 Th/cmm (4.8-10.8) L 12/14/16 07:20 RBC 4.94 Mil/cmm (3.80-5.10) 12/14/16 07:20 Hgb 14.8 gm/dL (11.7-15.5) 12/14/16 07:20 Hct 44.3 % (35.0-45.0) D 12/14/16 07:20 MCV 89.7 fl (81-100) 12/14/16 07:20 MCH 29.9 pg (27.0-31.0) 12/14/16 07:20 MCHC Differential 33.3 pg (28.0-36.0) 12/14/16 07:20 RDW 13.4 % (11.5-20.0) 12/14/16 07:20 Plt Count 168 Th/cmm (150-400) D 12/14/16 07:20 MPV 8.6 fl 12/14/16 07:20 Neutrophils % 56.1 % (40.0-80.0) 12/14/16 07:20 Lymphocytes % 29.3 % (20.0-50.0) 12/14/16 07:20 Monocytes % 10.1 % (2.0-10.0) H 12/14/16 07:20 Eosinophils % 2.3 % (0.0-5.0) 12/14/16 07:20 Basophils % 2.2 % (0.0-2.0) H 12/14/16 07:20 PT 10.4 SECONDS (9.5-11.5) 12/12/16 00:18 INR 1.00 (0.5-1.4) 12/12/16 00:18 Sodium 134 mEq/L (136-145) L 12/14/16 07:20 Potassium 4.0 mEq/L (3.5-5.1) 12/14/16 07:20 Chloride 100 mEq/L (98-107) 12/14/16 07:20 Carbon Dioxide 30.9 mEq/L (21.0-31.0) 12/14/16 07:20 Anion Gap 7.1 (7.0-16.0) 12/14/16 07:20 BUN 26 mg/dL (7-25) H 12/14/16 07:20 Creatinine 1.0 mg/dL (0.6-1.2) 12/14/16 07:20 Est GFR ( Amer) > 60.0 ml/min (>90) 12/14/16 07:20 Est GFR (Non-Af Amer) 59.9 ml/min 12/14/16 07:20 BUN/Creatinine Ratio 26.0 12/14/16 07:20 Glucose 90 mg/dL (70-105) 12/14/16 07:20 Whole Bld Lactic Acid 0.91 mmol/L (0.60-1.99) 12/12/16 00:18 Calcium 10.3 mg/dL (8.6-10.3) 12/14/16 07:20 Creatine Kinase 20 U/L (30-223) L 12/12/16 00:18 Troponin I < 0.01 ng/mL (0.01-0.05) L 12/12/16 00:18 B-Natriuretic Peptide 31.1 pg/mL (5.0-100.0) 12/12/16 00:18 Triglycerides 213 mg/dL (<150) H 12/12/16 00:18 Cholesterol 196 mg/dL (<200) 12/12/16 00:18 LDL Cholesterol Direct 130 mg/dL (75-193) 12/12/16 00:18 HDL Cholesterol 39 mg/dL (23-92) 12/12/16 00:18 Urine Source CLEAN C 12/12/16 02:00 Urine Color YELLOW 12/12/16 02:00 Urine Clarity CLEAR (CLEAR) 12/12/16 02:00 Urine pH 7.0 (4.6 - 8.0) 12/12/16 02:00 Ur Specific [place] 1.010 (1.005-1.030) 12/12/16 02:00 Urine Protein NEGATIVE mg/dL (NEGATIVE) 12/12/16 02:00 Urine Glucose (UA) NEGATIVE mg/dL (NEGATIVE) 12/12/16 02:00 Urine Ketones NEGATIVE mg/dL (NEGATIVE) 12/12/16 02:00 Urine Blood NEGATIVE (NEGATIVE) 12/12/16 02:00 Urine Nitrate NEGATIVE (NEGATIVE) 12/12/16 02:00 Urine Bilirubin NEGATIVE (NEGATIVE) 12/12/16 02:00 Urine Urobilinogen 1.0 E.U./dL (0.2 - 1.0) 12/12/16 02:00 Ur Leukocyte Esterase NEGATIVE (NEGATIVE) 12/12/16 02:00 Urine RBC 0-2 /hpf (0-5) 12/12/16 02:00 Urine WBC 0-2 /hpf (0-5) 12/12/16 02:00 Ur Epithelial Cells FEW /lpf (FEW) 12/12/16 02:00 Urine Bacteria FEW /hpf (NONE SEEN) 12/12/16 02:00 - Physical Exam Vitals and I&O: Vital Signs Temp 97.7 F 12/16/16 10:57 Pulse 93 12/16/16 10:57 Resp 20 12/16/16 10:57 BP 96/76 12/16/16 10:57 Pulse Ox 95 12/16/16 10:57 Intake & Output 12/15/16 12/16/16 12/16/16 18:59 06:59 18:59 Intake Total 1500 Balance 1500 Weight (lbs) 147 lb 153 lb Intake: Intake, IV Amount 1000 D5-0.9%Ns 1,000 ml @ 80 1000 mls/hr IV .[id number] [facility] Rx #:[id number] Oral 500 Other: # Voids 3 3 # Bowel Movements 0 Stool Characteristics Formed Formed Formed Brown Brown Brown Active Medications: Current Medications Acetaminophen (Tylenol) 650 mg PO Q4H PRN PRN Reason: Pain Or Fever above 101 Stop: 02/10/17 07:22 Albuterol Sulfate (Albuterol 2.5mg/3ml Neb Ud) 2.5 mg HHN Q2HRT PRN PRN Reason: Shortness of Breath or Wheeze Stop: 02/10/17 07:22 Aspirin (Ecotrin) 81 mg PO DAILY [facility] Stop: 02/10/17 08:59 Last Admin: 12/16/16 09:05 Dose: 81 mg Benztropine Mesylate (Cogentin) 1 mg PO HS ELKIN Stop: 02/10/17 20:59 Last Admin: 12/15/16 21:31 Dose: Not Given Cholecalciferol (Vitamin D3) 1,000 iu PO DAILY ELKIN Stop: 02/10/17 08:59 Last Admin: 12/16/16 09:04 Dose: 1,000 iu Clonazepam (Klonopin) 1 mg PO BID ELKIN PRN Reason: Protocol Stop: 02/13/17 08:59 Dextromethorphan/Quinidine (Nuedexta 20mg-10mg) 1 cap PO Q12HR ELKIN Stop: 02/10/17 08:59 Last Admin: 12/16/16 09:05 Dose: 1 cap Divalproex Sodium (Depakote Dr) 750 mg PO BID ELKIN PRN Reason: Protocol Stop: 02/10/17 08:59 Last Admin: 12/16/16 09:04 Dose: 750 mg Fenofibrate (Tricor) 134 mg PO QOD ELKIN Stop: 02/10/17 08:59 Last Admin: 12/15/16 08:28 Dose: 134 mg Guaifenesin (Robitussin) 200 mg PO Q4HR PRN PRN Reason: Cough or Congestion Stop: 02/10/17 07:22 Haloperidol (Haldol) 2 mg PO TID ELKIN PRN Reason: Protocol Stop: 02/13/17 08:59 Last Admin: 12/16/16 09:05 Dose: 2 mg Heparin Sodium (Porcine) (Heparin) 5,000 units SUBQ Q12HR ELKIN Stop: 02/10/17 20:59 Last Admin: 12/16/16 09:05 Dose: Not Given Dextrose/Sodium Chloride (D5-0.9%Ns) 1,000 mls @ 80 mls/hr IV .[id number] ELKIN Stop: 02/10/17 07:29 Last Admin: 12/16/16 04:06 Dose: 80 mls/hr Ipratropium [place] (Atrovent Neb 0.5mg/2.5ml) 0.5 mg IH Q2HRT PRN PRN Reason: Shortness of Breath or Wheeze Stop: 02/10/17 07:22 Lactulose (Cephulac) 20 gm PO DAILY [facility] Stop: 02/10/17 08:59 Last Admin: 12/16/16 09:05 Dose: Not Given Lorazepam (Ativan) 1 mg IVP Q4HR PRN; Protocol PRN Reason: Agitation Stop: 02/11/17 06:15 Last Admin: 12/16/16 09:57 Dose: 1 mg Miscellaneous (Vte Chemical Prophylaxis Screen/ Admission) 1 ea MC PRN PRN PRN Reason: PROTOCOL Stop: 02/10/17 11:44 Mupirocin (Bactroban Oint) 1 appl NS BID [facility] Stop: 12/18/16 09:01 Last Admin: 12/16/16 09:05 Dose: Not Given Ondansetron HCl (Zofran) 4 mg IV Q8H PRN PRN Reason: Nausea / Vomiting Stop: 02/10/17 07:22 Quetiapine Fumarate (Seroquel) 200 mg PO BID ELKIN PRN Reason: Protocol Stop: 02/13/17 08:59 Last Admin: 12/16/16 09:04 Dose: 200 mg Trazodone HCl (Desyrel) 100 mg PO HS ELKIN PRN Reason: Protocol Stop: 02/10/17 20:59 Last Admin: 12/15/16 21:31 Dose: Not Given General: alert, appears older HEENT: NC/AT, PERRLA Neck: Supple, No LAD Lungs: CTAB Cardiovascular: RRR, Normal S1, Normal S2 Abdomen: soft, non-tender, non-distended Extremities: excoriation Neurological: alert, muscle weakness, unable to follow command - Procedures Procedures: Procedures Procedure Code Date INJECT/INFUSE NEC 99.29 04/12/12 Internal Medicine Assmt/Plan - Assessment Assessment: SYNCOPE S/P FALL HYPERLIPIDEMIA COPD HTN ANEMIA MUSCLE WEAKNESS AHD
--- NOTE | 2016-12-16 19:00 | Discharge Summary ---
DATE OF DISCHARGE: 12/16/2016 ADMISSION DIAGNOSES: Syncope, status post fall; hyperlipidemia; hypertension; convulsion; chronic obstructive pulmonary disease; muscle weakness; and agitation. DISCHARGE DIAGNOSES: Status post fall; hyperlipidemia; hypertension; convulsion; chronic obstructive pulmonary disease; muscle weakness; and agitation. HISTORY OF PRESENT ILLNESS: A 61-year-old female, resident of [facility], who was brought to [facility] due to an unwitnessed fall and syncopal episode. The patient was noted with head injury upon examination. The patient is awake, confused and combative. PHYSICAL EXAMINATION: GENERAL: The patient is well developed, well nourished, no acute distress. VITAL SIGNS: Stable. HEENT: Normocephalic, atraumatic. NECK: Supple. No mass. LUNGS: Clear bilaterally. HEART: ____ rhythm. ABDOMEN: Soft, nontender. HOSPITAL COURSE: During the hospital stay, the patient was admitted to the med/surg unit. The patient had a psychiatrist consult with Dr. Dejesus. The patient had a CT of the head and the impression was right frontal soft tissue scalp injury, no evidence of occult fracture. Also an x-ray was obtained; impression is suboptimal lung volume with increased interstitial lung marking suggestive of chronic lung changes, no focal consolidation identified. The patient was kept on IV fluids for hydration, a one to one sitter at bedside for safety. The patient is medically cleared for this reasons. The patient is stable to be discharged to Geropsych unit. CONDITION UPON DISCHARGE: Fair. DISPOSITION: Geropsych unit. [facility]# [id number]
== END 2016-12-16 17:46 | DRG 312 ==
LOC: ER 23:44 → TELE 12-12 03:25 → MSI 12-12 13:42
PROVIDERS: ADMIT Internal Medicine; ATTEND Internal Medicine
DX: R55 Syncope and collapse (principal); R56.9 Unspecified convulsions; F03.90 Unspecified dementia, unspecified severity, without behavioral disturbance, psychotic disturbance, mood disturbance, and anxiety; S09.90XA Unspecified injury of head, initial encounter; E78.5 Hyperlipidemia, unspecified; I10 Essential (primary) hypertension; J44.9 Chronic obstructive pulmonary disease, unspecified; R45.1 Restlessness and agitation; I25.10 Atherosclerotic heart disease of native coronary artery without angina pectoris; F20.9 Schizophrenia, unspecified; F31.9 Bipolar disorder, unspecified; M62.81 Muscle weakness (generalized); Y93.9 Activity, unspecified; W18.30XA Fall on same level, unspecified, initial encounter; Y92.89 Other specified places as the place of occurrence of the external cause; Y99.8 Other external cause status; Z88.0 Allergy status to penicillin; Z83.3 Family history of diabetes mellitus; Z82.49 Family history of ischemic heart disease and other diseases of the circulatory system
CPT/HCPCS: 36415-UA; 70450-TC; 71010-TC; 80048-TC; 80061-TC; 81001-TC; 82550-TC; 83605; 83880-TC; 84484-TC; 85025-TC; 85610-TC; 93005; 93880-TC; 94760; J1644; J1956; J2060; J7042; Z7610

== ENCOUNTER 2016-12-16 18:15 | Inpatient (IN) | payer MEDICARE, MEDICAID ==
[2016-12-16] MEDS ORDERED: Magnesium Hydroxide (MOM) 30 mL UDC PO PRN (19:52)
[2016-12-16] MEDS ORDERED: Maalox 30 mL Cup PO PRN (19:52)
--- NOTE | 2016-12-17 00:19 | Progress Notes ---
DATE: 12/16/2016 Case was discussed with staff of the patient, reviewed records. Covering for Dr. Butcher. The patient continues to be unpredictable, impulsive, . Continues to have poor insight. Unable to make safe plan for self-care. She is on Seroquel and trazodone. She is compliant with the medication. She is eating better. She needs to go to [facility] if she continues to be agitated. Thank you very much for allowing me to participate in the care of this most interesting lady. JOB# [id number]
[2016-12-17] MEDS ORDERED: Multivitamin Tab PO SCH (09:00)
[2016-12-17] MEDS ORDERED: Haloperidol Lactate 5 mg/mL 1mL Vial ONE (09:24)
[2016-12-17] MEDS ORDERED: Haloperidol Lactate 5 mg/mL 1mL Vial IM ONE (09:26)
[2016-12-17] MEDS: Lactulose 10 Gm/15 mL 30mL UDC PO SCH (09:32)
[2016-12-17] MEDS: Dextromethorphan/Quinidine 20mg/10mg Cap PO SCH ×2 (09:32→21:32)
[2016-12-17] MEDS: Multivitamin w/ Minerals Tab PO SCH (09:32)
--- NOTE | 2016-12-17 13:05 | Internal Medicine Prog Note ---
Internal Medicine Subjective - Subjective Service Date: 12/17/16 Patient seen and examined:: with staff Patient is:: awake, confused Per staff patient has:: no adverse event, tolerating meds Internal Medicine Objective - Physical Exam Vitals and I&O: Vital Signs Temp 98.3 F 12/16/16 20:09 Pulse 52 12/16/16 20:09 Resp 19 12/16/16 20:09 BP 120/70 12/16/16 20:09 Pulse Ox 96 12/16/16 20:09 Intake & Output 12/16/16 12/17/16 12/17/16 18:59 06:59 18:59 Intake Total 360 Balance 360 Intake: Oral 360 Other: # Voids 1 Active Medications: Current Medications Acetaminophen (Tylenol) 650 mg PO Q4HR PRN PRN Reason: Mild Pain / Temp above 100 Stop: 02/14/17 19:51 Al Hydrox/Mg Hydrox/Simethicone (Maalox) 30 ml PO Q4HR PRN PRN Reason: GI DISTRESS Stop: 02/14/17 19:51 Benztropine Mesylate (Cogentin) 1 mg PO HS ELKIN Stop: 02/15/17 20:59 Cholecalciferol (Vitamin D3) 1,000 iu PO DAILY [facility] Stop: 02/15/17 08:59 Last Admin: 12/17/16 09:32 Dose: Not Given Dextromethorphan/Quinidine (Nuedexta 20mg-10mg) 1 cap PO Q12HR ELKIN Stop: 02/15/17 08:59 Last Admin: 12/17/16 09:32 Dose: Not Given Diphenhydramine HCl (Benadryl 50 Mg/Ml) 50 mg IM X1 PRN PRN Reason: EPS Stop: 02/15/17 09:27 Last Admin: 12/17/16 09:43 Dose: 50 mg Divalproex Sodium (Depakote Dr) 750 mg PO BID ELKIN PRN Reason: Protocol Stop: 02/15/17 08:59 Last Admin: 12/17/16 09:23 Dose: Not Given Haloperidol Lactate (Haldol) 5 mg IM NOW ONE Stop: 12/17/16 09:27 Last Admin: 12/17/16 09:35 Dose: 5 mg Hydrochlorothiazide (Hctz) 50 mg PO DAILY ELKIN Stop: 02/15/17 08:59 Last Admin: 12/17/16 09:32 Dose: Not Given Lactulose (Cephulac) 20 gm PO DAILY ELKIN Stop: 02/15/17 08:59 Last Admin: 12/17/16 09:32 Dose: Not Given Lorazepam (Ativan) 1 mg PO Q6HR PRN; Protocol PRN Reason: Anxiety Stop: 02/14/17 21:38 Last Admin: 12/17/16 02:22 Dose: 1 mg Lorazepam (Ativan) 2 mg IM NOW ONE PRN Reason: Protocol Stop: 12/17/16 09:30 Last Admin: 12/17/16 09:39 Dose: 2 mg Magnesium Hydroxide (Milk Of Magnesia) 30 ml PO HS PRN PRN Reason: Constipation Miscellaneous (Fenofibrate [Lofibra]) 54 mg PO DAILY [facility] Stop: 02/15/17 08:59 Quetiapine Fumarate (Seroquel) 400 mg PO DAILY ELKIN PRN Reason: Protocol Stop: 02/15/17 08:59 Last Admin: 12/17/16 09:21 Dose: Not Given Spironolactone (Aldactone) 50 mg PO DAILY [facility] Stop: 02/15/17 08:59 Last Admin: 12/17/16 09:32 Dose: Not Given Zolpidem Tartrate (Ambien) 5 mg PO HS PRN PRN Reason: Insomnia Stop: 02/14/17 19:51 Last Admin: 12/17/16 00:18 Dose: 5 mg General: alert HEENT: NC/AT, PERRLA Neck: Supple Lungs: CTAB Cardiovascular: RRR, Normal S1, Normal S2, without murmur Abdomen: soft, non-tender, non-distended, positive bowel sound Neurological: unsteady - Procedures Procedures: Procedures Procedure Code Date INJECT/INFUSE NEC 99.29 04/12/12 Internal Medicine Assmt/Plan - Assessment Assessment: HYPERLIPIDEMIA COPD HTN ANEMIA MUSCLE WEAKNESS AHD - Plan Plan: FALL PRECAUTIONS CONTINUE CURRENT MEDICATIONS
--- NOTE | 2016-12-17 16:12 | Consultation ---
DATE OF CONSULTATION: 12/17/[address] Butcher. The patient was transferred from the medical floor on the 16 of December, ____ admitted on 12/17/2016. IDENTIFYING INFORMATION: The patient is a 61-year-old female. CHIEF COMPLAINT: "I don't like this place." HISTORY OF PRESENT ILLNESS: Transferred from the medical floor, originally she was transferred from [facility]. She has syncopal episode, unwitnessed fall, head injury. The patient was agitated, aggressive, calling people names. She is not sure why she is in this facility. She has a history of schizophrenia and dementia. When I talked to the patient, she was uncooperative. When I asked her where she was, she said "in a place I don't like," unable to tell me the date, her age. She was eating, was very hostile and noncooperative, unable to do a formal mental status exam on her. PAST PSYCHIATRIC HISTORY: Schizophrenia, dementia. MEDICAL HISTORY: Deferred to the medical doctor. ALLERGIES: THE PATIENT IS ALLERGIC TO PENICILLIN. MEDICATIONS: Has been on Depakote 750 mg twice a day and Benadryl 50 mg as needed, ____ why she was on the medical floor and she is on Seroquel 400 mg at bedtime. MEDICAL HISTORY: As per Dr. Lino. FAMILY AND SOCIAL HISTORY: Unobtainable, the patient was uncooperative. MENTAL STATUS EXAMINATION: The patient is appropriately dressed, not well groomed. She was dressed in a hospital gown. She was feeding herself. She was unable to tell me the date. She believed she is in a place which she hates, unable to participate in memory testing or formal mental status examination. She has been hostile, irritable, calling people name. Unable to test her memory, concentration with a history of dementia. Unable to test her concentration as she is uncooperative. Her insight and judgment is impaired. IMPRESSION: AXIS I: Psychosis, not otherwise specified, dementia, history of schizophrenia. MEDICAL DIAGNOSIS: Deferred to Dr. Lino. INITIAL TREATMENT PLAN: She will continue with Seroquel, do group therapy, milieu therapy, and individual therapy. ESTIMATED LENGTH OF STAY: 3-7 days. DISCHARGE CRITERIA: Decrease in psychosis, agitation. After discharge, outpatient. [facility]# [id number]
[2016-12-17] MEDS: Benztropine 1 MG TAB PO SCH (21:32)
[2016-12-18] MEDS: Lactulose 10 Gm/15 mL 30mL UDC PO SCH ×2 (08:46→09:44)
[2016-12-18] MEDS: Dextromethorphan/Quinidine 20mg/10mg Cap PO SCH ×3 (08:47→20:41)
[2016-12-18] MEDS: Multivitamin w/ Minerals Tab PO SCH ×2 (08:48→09:44)
[2016-12-18] MEDS ORDERED: Haloperidol Lactate 5 mg/mL 1mL Vial ONE (09:24)
[2016-12-18] MEDS ORDERED: Haloperidol Lactate 5 mg/mL 1mL Vial IM ONE (09:27)
--- NOTE | 2016-12-18 15:27 | Internal Medicine Prog Note ---
Internal Medicine Subjective - Subjective Service Date: 12/18/16 Patient is:: awake, confused Per staff patient has:: no adverse event, tolerating meds Internal Medicine Objective - Results Recent Labs: Laboratory Last Values Valproic Acid < 10.0 ug/mL (50.0-100.0) L 12/18/16 11:39 - Physical Exam Vitals and I&O: Vital Signs Temp 98.3 F 12/17/16 21:03 Pulse 80 12/17/16 21:03 Resp 18 12/18/16 08:00 BP 92/62 12/17/16 21:03 Pulse Ox 97 12/17/16 21:03 Intake & Output 12/17/16 12/18/16 12/18/16 18:59 06:59 18:59 Intake Total 1800 180 Balance 1800 180 Intake: Oral 1800 180 Other: # Voids 4 2 # Bowel Movements 1 0 Active Medications: Current Medications Acetaminophen (Tylenol) 650 mg PO Q4HR PRN PRN Reason: Mild Pain / Temp above 100 Stop: 02/14/17 19:51 Al Hydrox/Mg Hydrox/Simethicone (Maalox) 30 ml PO Q4HR PRN PRN Reason: GI DISTRESS Stop: 02/14/17 19:51 Benztropine Mesylate (Cogentin) 1 mg PO HS ELKIN Stop: 02/15/17 20:59 Last Admin: 12/17/16 21:32 Dose: 1 mg Cholecalciferol (Vitamin D3) 1,000 iu PO DAILY [facility] Stop: 02/15/17 08:59 Last Admin: 12/18/16 09:43 Dose: Not Given Dextromethorphan/Quinidine (Nuedexta 20mg-10mg) 1 cap PO Q12HR [facility]KIN Stop: 02/15/17 08:59 Last Admin: 12/18/16 09:43 Dose: Not Given Divalproex Sodium (Depakote Dr) 750 mg PO BID ELKIN PRN Reason: Protocol Stop: 02/15/17 08:59 Last Admin: 12/18/16 09:43 Dose: Not Given Hydrochlorothiazide (Hctz) 50 mg PO DAILY [facility] Stop: 02/15/17 08:59 Last Admin: 12/18/16 09:44 Dose: Not Given Lactulose (Cephulac) 20 gm PO DAILY ELKIN Stop: 02/15/17 08:59 Last Admin: 12/18/16 09:44 Dose: Not Given Lorazepam (Ativan) 1 mg PO Q6HR PRN; Protocol PRN Reason: Anxiety Stop: 02/14/17 21:38 Last Admin: 12/17/16 02:22 Dose: 1 mg Magnesium Hydroxide (Milk Of Magnesia) 30 ml PO HS PRN PRN Reason: Constipation Miscellaneous (Fenofibrate [Lofibra]) 54 mg PO DAILY ELKIN Stop: 02/15/17 08:59 Quetiapine Fumarate (Seroquel) 300 mg PO BID ELKIN PRN Reason: Protocol Stop: 02/16/17 08:59 Last Admin: 12/18/16 09:44 Dose: Not Given Zolpidem Tartrate (Ambien) 5 mg PO HS PRN PRN Reason: Insomnia Stop: 02/14/17 19:51 Last Admin: 12/17/16 21:32 Dose: 5 mg General: alert HEENT: NC/AT, PERRLA Neck: Supple Lungs: CTAB Cardiovascular: RRR, Normal S1, Normal S2, without murmur Abdomen: soft, non-tender, non-distended, positive bowel sound Neurological: unsteady - Procedures Procedures: Procedures Procedure Code Date INJECT/INFUSE NEC 99.29 04/12/12 Internal Medicine Assmt/Plan - Assessment Assessment: HYPERLIPIDEMIA COPD HTN ANEMIA MUSCLE WEAKNESS AHD - Plan Plan: FALL PRECAUTIONS CONTINUE CURRENT MEDICATIONS
[2016-12-18] MEDS: Benztropine 1 MG TAB PO SCH (20:41)
--- NOTE | 2016-12-18 21:41 | Progress Notes ---
DATE: 12/18/2016 SUBJECTIVE: Chart reviewed and the patient interviewed. Also discussed the patient's condition with the staff and reviewed records and labs. The patient is still extremely agitated and in irritable mood. The patient also is restless and she is yelling and screaming. She also is still having difficulty following any of the staff's directions. The patient also is having severe anxiety and severe mood swings. When staff tries to help her, the patient screams and yells and has angry outbursts. Yesterday, the patient was extremely agitated and threatening to the point that the patient had to be given Haldol, Ativan, and Benadryl injection on an emergency basis. ASSESSMENT: The patient is still agitated and is still psychotic. TREATMENT PLAN: We will continue monitoring her behavior and her condition closely. Also, the patient is taking Seroquel and we will change the dose to 300 mg twice a day. Also, we will monitor Depakote blood level. During interview, the patient is agitated and is restless and is severely irritable. JOB# [id number]
[2016-12-19] MEDS ORDERED: Haloperidol Lactate 5 mg/mL 1mL Vial IM ONE (07:09)
[2016-12-19] MEDS ORDERED: Haloperidol Lactate 5 mg/mL 1mL Vial ONE (07:09)
[2016-12-19] MEDS: Fenofibrate, Micronized 134 mg Cap PO SCH (09:19)
[2016-12-19] MEDS: Multivitamin w/ Minerals Tab PO SCH (09:21)
[2016-12-19] MEDS: Dextromethorphan/Quinidine 20mg/10mg Cap PO SCH ×2 (09:22→21:21)
[2016-12-19] MEDS: Lactulose 10 Gm/15 mL 30mL UDC PO SCH (09:30)
--- NOTE | 2016-12-19 10:47 | Internal Medicine Prog Note ---
Internal Medicine Subjective - Subjective Service Date: 12/19/16 Patient is:: awake, confused Per staff patient has:: no adverse event, tolerating meds Internal Medicine Objective - Results Recent Labs: Laboratory Last Values Valproic Acid < 10.0 ug/mL (50.0-100.0) L 12/18/16 11:39 - Physical Exam Vitals and I&O: Vital Signs Temp 97.3 F 12/19/16 06:44 Pulse 75 12/19/16 07:25 Resp 18 12/19/16 07:25 BP 113/68 12/19/16 09:19 Pulse Ox 97 12/19/16 07:25 Intake & Output 12/18/16 12/19/16 12/19/16 18:59 06:59 18:59 Intake Total 800 120 Balance 800 120 Intake: Oral 800 120 Other: # Voids 3 3 # Bowel Movements 1 Active Medications: Current Medications Acetaminophen (Tylenol) 650 mg PO Q4HR PRN PRN Reason: Mild Pain / Temp above 100 Stop: 02/14/17 19:51 Al Hydrox/Mg Hydrox/Simethicone (Maalox) 30 ml PO Q4HR PRN PRN Reason: GI DISTRESS Stop: 02/14/17 19:51 Benztropine Mesylate (Cogentin) 1 mg PO HS ELKIN Stop: 02/15/17 20:59 Last Admin: 12/18/16 20:41 Dose: Not Given Cholecalciferol (Vitamin D3) 1,000 iu PO DAILY [facility] Stop: 02/15/17 08:59 Last Admin: 12/19/16 09:22 Dose: 1,000 iu Dextromethorphan/Quinidine (Nuedexta 20mg-10mg) 1 cap PO Q12HR [facility] Stop: 02/15/17 08:59 Last Admin: 12/19/16 09:22 Dose: 1 cap Divalproex Sodium (Depakote Dr) 750 mg PO BID ELKIN PRN Reason: Protocol Stop: 02/15/17 08:59 Last Admin: 12/19/16 09:20 Dose: 750 mg Fenofibrate (Tricor) 134 mg PO DAILY [facility] Stop: 02/17/17 08:59 Last Admin: 12/19/16 09:19 Dose: 134 mg Hydrochlorothiazide (Hctz) 50 mg PO DAILY [facility] Stop: 02/15/17 08:59 Last Admin: 12/19/16 09:19 Dose: 50 mg Lactulose (Cephulac) 20 gm PO DAILY [facility] Stop: 02/15/17 08:59 Last Admin: 12/19/16 09:30 Dose: Not Given Lorazepam (Ativan) 1 mg PO Q6HR PRN; Protocol PRN Reason: Anxiety Stop: 02/14/17 21:38 Last Admin: 12/19/16 06:48 Dose: 1 mg Magnesium Hydroxide (Milk Of Magnesia) 30 ml PO HS PRN PRN Reason: Constipation Quetiapine Fumarate (Seroquel) 300 mg PO BID ELKIN PRN Reason: Protocol Stop: 02/16/17 08:59 Last Admin: 12/19/16 09:22 Dose: 300 mg Zolpidem Tartrate (Ambien) 5 mg PO HS PRN PRN Reason: Insomnia Stop: 02/14/17 19:51 Last Admin: 12/18/16 23:14 Dose: 5 mg General: alert HEENT: NC/AT, PERRLA Neck: Supple Lungs: CTAB Cardiovascular: RRR, Normal S1, Normal S2, without murmur Abdomen: soft, non-tender, non-distended, positive bowel sound Neurological: unsteady - Procedures Procedures: Procedures Procedure Code Date INJECT/INFUSE NEC 99.29 04/12/12 Internal Medicine Assmt/Plan - Assessment Assessment: HYPERLIPIDEMIA COPD HTN ANEMIA MUSCLE WEAKNESS AHD - Plan Plan: FALL PRECAUTIONS CONTINUE CURRENT MEDICATIONS
[2016-12-19] MEDS: Benztropine 1 MG TAB PO SCH (21:21)
--- NOTE | 2016-12-20 01:36 | Progress Notes ---
DATE: 12/19/2016 SUBJECTIVE: Chart reviewed and the patient interviewed. Also discussed the patient's condition with the staff and reviewed records and labs. The patient continued to be extremely agitated and extremely irritable. The patient also is suspicious and is in angry mood. She is yelling and screaming constantly. The patient also is still having disorganized thoughts. She also still at times refused to take medications. This morning, the patient was extremely agitated and yelling and screaming constantly and was not able to follow any directions and staff had to give her Ativan, Haldol, and Benadryl emergency dose to calm her down. Currently, the patient is sedated and she was not able to answer my questions. MENTAL STATUS EXAMINATION: The patient is disheveled and currently sedated and she did not answer any of my questions and unable to mental status. ASSESSMENT: The patient is still psychotic and agitated. TREATMENT PLAN: Continue monitoring her behavior and her condition closely. Also, we will continue Seroquel, which was increased yesterday to 300 mg twice a day and continue Depakote and we will continue to follow up closely. JOB# [id number]
[2016-12-20] MEDS ORDERED: Haloperidol Lactate 5 mg/mL 1mL Vial IM ONE (08:27)
[2016-12-20] MEDS ORDERED: Haloperidol Lactate 5 mg/mL 1mL Vial ONE (08:27)
[2016-12-20] MEDS: Multivitamin w/ Minerals Tab PO SCH (08:51)
[2016-12-20] MEDS: Lactulose 10 Gm/15 mL 30mL UDC PO SCH (08:51)
[2016-12-20] MEDS: Dextromethorphan/Quinidine 20mg/10mg Cap PO SCH ×2 (08:51→20:55)
[2016-12-20] MEDS: Fenofibrate, Micronized 134 mg Cap PO SCH (08:51)
--- NOTE | 2016-12-20 15:26 | Internal Medicine Prog Note ---
Internal Medicine Subjective - Subjective Service Date: 12/20/16 Patient is:: awake, confused Per staff patient has:: no adverse event, tolerating meds Internal Medicine Objective - Results Recent Labs: Laboratory Last Values Valproic Acid < 10.0 ug/mL (50.0-100.0) L 12/18/16 11:39 - Physical Exam Vitals and I&O: Vital Signs Temp 98.1 F 12/20/16 14:00 Pulse 64 12/20/16 14:00 Resp 20 12/20/16 14:00 BP 122/54 12/20/16 14:00 Pulse Ox 96 12/20/16 14:00 Intake & Output 12/19/16 12/20/16 12/20/16 18:59 06:59 18:59 Intake Total 1200 Balance 1200 Intake: Oral 1200 Other: # Bowel Movements 1 Active Medications: Current Medications Acetaminophen (Tylenol) 650 mg PO Q4HR PRN PRN Reason: Mild Pain / Temp above 100 Stop: 02/14/17 19:51 Al Hydrox/Mg Hydrox/Simethicone (Maalox) 30 ml PO Q4HR PRN PRN Reason: GI DISTRESS Stop: 02/14/17 19:51 Benztropine Mesylate (Cogentin) 1 mg PO HS ELKIN Stop: 02/15/17 20:59 Last Admin: 12/19/16 21:21 Dose: 1 mg Cholecalciferol (Vitamin D3) 1,000 iu PO DAILY ELKIN Stop: 02/15/17 08:59 Last Admin: 12/20/16 08:50 Dose: Not Given Clonazepam (Klonopin) 0.5 mg PO BID ELKIN PRN Reason: Protocol Stop: 02/18/17 08:59 Dextromethorphan/Quinidine (Nuedexta 20mg-10mg) 1 cap PO Q12HR ELKIN Stop: 02/15/17 08:59 Last Admin: 12/20/16 08:51 Dose: Not Given Divalproex Sodium (Depakote Dr) 750 mg PO BID ELKIN PRN Reason: Protocol Stop: 02/15/17 08:59 Last Admin: 12/20/16 08:51 Dose: Not Given Fenofibrate (Tricor) 134 mg PO DAILY ELKIN Stop: 02/17/17 08:59 Last Admin: 12/20/16 08:51 Dose: Not Given Hydrochlorothiazide (Hctz) 50 mg PO DAILY ELKIN Stop: 02/15/17 08:59 Last Admin: 12/20/16 08:51 Dose: Not Given Lactulose (Cephulac) 20 gm PO DAILY ELKIN Stop: 02/15/17 08:59 Last Admin: 12/20/16 08:51 Dose: Not Given Lorazepam (Ativan) 1 mg PO Q6HR PRN; Protocol PRN Reason: Anxiety Stop: 02/14/17 21:38 Last Admin: 12/19/16 06:48 Dose: 1 mg Magnesium Hydroxide (Milk Of Magnesia) 30 ml PO HS PRN PRN Reason: Constipation Quetiapine Fumarate (Seroquel) 300 mg PO BID ELKIN PRN Reason: Protocol Stop: 02/16/17 08:59 Last Admin: 12/20/16 08:51 Dose: Not Given Zolpidem Tartrate (Ambien) 5 mg PO HS PRN PRN Reason: Insomnia Stop: 02/14/17 19:51 Last Admin: 12/19/16 21:33 Dose: 5 mg General: alert HEENT: NC/AT, PERRLA Neck: Supple Lungs: CTAB Cardiovascular: RRR, Normal S1, Normal S2, without murmur Abdomen: soft, non-tender, non-distended, positive bowel sound Neurological: unsteady - Procedures Procedures: Procedures Procedure Code Date INJECT/INFUSE NEC 99.29 04/12/12 Internal Medicine Assmt/Plan - Assessment Assessment: HYPERLIPIDEMIA COPD HTN ANEMIA MUSCLE WEAKNESS AHD - Plan Plan: FALL PRECAUTIONS CONTINUE CURRENT MEDICATIONS
--- NOTE | 2016-12-20 20:50 | Progress Notes ---
DATE: 12/20/2016 SUBJECTIVE: Chart reviewed and the patient interviewed. Also discussed the patient's condition with the staff and reviewed records and labs. The patient is still hyperverbal and is still easily agitated and in angry and in irritable mood. The patient also is still restless and has difficultly following any of staff directions. The patient also still wants to be left alone. She is having severe mood swings and she gets aggressive with the staff. Yesterday, the patient had to be given Haldol, Ativan, and Benadryl in emergency dose because of her agitation and irritability. During interview, the patient is disheveled and she is restless. She also has disorganized thoughts. ASSESSMENT: The patient is still agitated and psychotic. TREATMENT PLAN: We will continue monitoring her behavior and her condition closely. Also, we will continue adjusting psychotropic medications and we will add Klonopin 0.5 mg twice a day. Also, continue to monitor her poor impulse control and work on behavioral modification. [facility]# [id number]
[2016-12-20] MEDS: Benztropine 1 MG TAB PO SCH (20:55)
[2016-12-21] MEDS ORDERED: Haloperidol Lactate 5 mg/mL 1mL Vial ONE (07:30)
[2016-12-21] MEDS ORDERED: Haloperidol Lactate 5 mg/mL 1mL Vial IM ONE (07:31)
--- NOTE | 2016-12-21 08:53 | Internal Medicine Prog Note ---
Internal Medicine Subjective - Subjective Service Date: 12/21/16 Patient is:: awake, confused Per staff patient has:: no adverse event, tolerating meds Internal Medicine Objective - Results Recent Labs: Laboratory Last Values Valproic Acid < 10.0 ug/mL (50.0-100.0) L 12/18/16 11:39 - Physical Exam Vitals and I&O: Vital Signs Temp 97.8 F 12/21/16 05:26 Pulse 68 12/21/16 05:26 Resp 18 12/21/16 05:26 BP 93/45 12/21/16 05:26 Pulse Ox 97 12/21/16 05:26 Intake & Output 12/20/16 12/21/16 12/21/16 18:59 06:59 18:59 Intake Total 1200 360 Balance 1200 360 Intake: Oral 1200 360 Other: # Voids 1 # Bowel Movements 1 Active Medications: Current Medications Acetaminophen (Tylenol) 650 mg PO Q4HR PRN PRN Reason: Mild Pain / Temp above 100 Stop: 02/14/17 19:51 Al Hydrox/Mg Hydrox/Simethicone (Maalox) 30 ml PO Q4HR PRN PRN Reason: GI DISTRESS Stop: 02/14/17 19:51 Benztropine Mesylate (Cogentin) 1 mg PO HS ELKIN Stop: 02/15/17 20:59 Last Admin: 12/20/16 20:55 Dose: 1 mg Cholecalciferol (Vitamin D3) 1,000 iu PO DAILY ELKIN Stop: 02/15/17 08:59 Last Admin: 12/20/16 08:50 Dose: Not Given Clonazepam (Klonopin) 0.5 mg PO BID ELKIN PRN Reason: Protocol Stop: 02/18/17 08:59 Dextromethorphan/Quinidine (Nuedexta 20mg-10mg) 1 cap PO Q12HR ELKIN Stop: 02/15/17 08:59 Last Admin: 12/20/16 20:55 Dose: 1 cap Divalproex Sodium (Depakote Dr) 750 mg PO BID ELKIN PRN Reason: Protocol Stop: 02/15/17 08:59 Last Admin: 12/20/16 17:28 Dose: Not Given Fenofibrate (Tricor) 134 mg PO DAILY ELKIN Stop: 02/17/17 08:59 Last Admin: 12/20/16 08:51 Dose: Not Given Hydrochlorothiazide (Hctz) 50 mg PO DAILY ELKIN Stop: 02/15/17 08:59 Last Admin: 12/20/16 08:51 Dose: Not Given Lactulose (Cephulac) 20 gm PO DAILY ELKIN Stop: 02/15/17 08:59 Last Admin: 12/20/16 08:51 Dose: Not Given Lorazepam (Ativan) 1 mg PO Q6HR PRN; Protocol PRN Reason: Anxiety Stop: 02/14/17 21:38 Last Admin: 12/20/16 17:27 Dose: 1 mg Magnesium Hydroxide (Milk Of Magnesia) 30 ml PO HS PRN PRN Reason: Constipation Quetiapine Fumarate (Seroquel) 300 mg PO BID ELKIN PRN Reason: Protocol Stop: 02/16/17 08:59 Last Admin: 12/20/16 17:27 Dose: 300 mg Zolpidem Tartrate (Ambien) 5 mg PO HS PRN PRN Reason: Insomnia Stop: 02/14/17 19:51 Last Admin: 12/19/16 21:33 Dose: 5 mg General: alert HEENT: NC/AT, PERRLA Neck: Supple Lungs: CTAB Cardiovascular: RRR, Normal S1, Normal S2, without murmur Abdomen: soft, non-tender, non-distended, positive bowel sound Neurological: unsteady - Procedures Procedures: Procedures Procedure Code Date INJECT/INFUSE NEC 99.29 04/12/12 Internal Medicine Assmt/Plan - Assessment Assessment: HYPERLIPIDEMIA COPD HTN ANEMIA MUSCLE WEAKNESS AHD - Plan Plan: FALL PRECAUTIONS CONTINUE CURRENT MEDICATIONS
[2016-12-21] MEDS: Lactulose 10 Gm/15 mL 30mL UDC PO SCH (09:03)
[2016-12-21] MEDS: Fenofibrate, Micronized 134 mg Cap PO SCH (09:03)
[2016-12-21] MEDS: Multivitamin w/ Minerals Tab PO SCH (09:03)
[2016-12-21] MEDS: Dextromethorphan/Quinidine 20mg/10mg Cap PO SCH ×2 (09:03→21:17)
[2016-12-21 20:16] VITALS: BP 136/82
[2016-12-21] MEDS: Benztropine 1 MG TAB PO SCH (21:17)
--- NOTE | 2016-12-21 21:24 | Progress Notes ---
DATE: 12/21/2016 SUBJECTIVE: The patient was seen, chart reviewed, and discussed with staff. The patient continues to be very irritable, confused, and disoriented. Continues to require numerous redirections. Often can become very aggressive towards staff. The patient did require p.r.n. medications this morning after she attempted to kick and spit at staff. She was given IM injection of Haldol, Ativan, and Benadryl with positive affect. PLAN: The patient continues to be very combative and irritable and felt that she will require ____ treatment. We will monitor patient on a daily basis for response to treatment and titrate as needed. JOB# [id number]
[2016-12-22] MEDS: Dextromethorphan/Quinidine 20mg/10mg Cap PO SCH ×2 (08:41→20:22)
[2016-12-22] MEDS: Fenofibrate, Micronized 134 mg Cap PO SCH (08:41)
[2016-12-22] MEDS: Lactulose 10 Gm/15 mL 30mL UDC PO SCH (08:42)
[2016-12-22] MEDS: Multivitamin w/ Minerals Tab PO SCH (08:42)
--- NOTE | 2016-12-22 08:58 | Internal Medicine Prog Note ---
Internal Medicine Subjective - Subjective Service Date: 12/22/16 Patient is:: awake, confused Per staff patient has:: no adverse event, tolerating meds Internal Medicine Objective - Results Recent Labs: Laboratory Last Values Valproic Acid < 10.0 ug/mL (50.0-100.0) L 12/18/16 11:39 - Physical Exam Vitals and I&O: Vital Signs Temp 97.5 F 12/22/16 06:52 Pulse 58 12/22/16 06:52 Resp 18 12/22/16 06:52 BP 110/64 12/22/16 06:52 Pulse Ox 98 12/22/16 06:52 Intake & Output 12/21/16 12/22/16 12/22/16 18:59 06:59 18:59 Intake Total 600 120 Balance 600 120 Intake: Oral 600 120 Other: # Voids 2 3 # Bowel Movements 0 Active Medications: Current Medications Acetaminophen (Tylenol) 650 mg PO Q4HR PRN PRN Reason: Mild Pain / Temp above 100 Stop: 02/14/17 19:51 Al Hydrox/Mg Hydrox/Simethicone (Maalox) 30 ml PO Q4HR PRN PRN Reason: GI DISTRESS Stop: 02/14/17 19:51 Benztropine Mesylate (Cogentin) 1 mg PO HS ELKIN Stop: 02/15/17 20:59 Last Admin: 12/21/16 21:17 Dose: 1 mg Cholecalciferol (Vitamin D3) 1,000 iu PO DAILY ELKIN Stop: 02/15/17 08:59 Last Admin: 12/22/16 08:40 Dose: Not Given Clonazepam (Klonopin) 0.5 mg PO BID ELKIN PRN Reason: Protocol Stop: 02/18/17 08:59 Last Admin: 12/22/16 08:40 Dose: 0.5 mg Dextromethorphan/Quinidine (Nuedexta 20mg-10mg) 1 cap PO Q12HR ELKIN Stop: 02/15/17 08:59 Last Admin: 12/22/16 08:41 Dose: 1 cap Divalproex Sodium (Depakote Dr) 750 mg PO BID ELKIN PRN Reason: Protocol Stop: 02/15/17 08:59 Last Admin: 12/22/16 08:41 Dose: Not Given Fenofibrate (Tricor) 134 mg PO DAILY ELKIN Stop: 02/17/17 08:59 Last Admin: 12/22/16 08:41 Dose: Not Given Hydrochlorothiazide (Hctz) 50 mg PO DAILY [facility] Stop: 02/15/17 08:59 Last Admin: 12/22/16 08:42 Dose: Not Given Lactulose (Cephulac) 20 gm PO DAILY ELKIN Stop: 02/15/17 08:59 Last Admin: 12/22/16 08:42 Dose: Not Given Lorazepam (Ativan) 1 mg PO Q6HR PRN; Protocol PRN Reason: Anxiety Stop: 02/14/17 21:38 Last Admin: 12/21/16 21:17 Dose: 1 mg Magnesium Hydroxide (Milk Of Magnesia) 30 ml PO HS PRN PRN Reason: Constipation Quetiapine Fumarate (Seroquel) 300 mg PO BID ELKIN PRN Reason: Protocol Stop: 02/16/17 08:59 Last Admin: 12/22/16 08:42 Dose: Not Given Zolpidem Tartrate (Ambien) 5 mg PO HS PRN PRN Reason: Insomnia Stop: 02/14/17 19:51 Last Admin: 12/19/16 21:33 Dose: 5 mg General: alert HEENT: NC/AT, PERRLA Neck: Supple Lungs: CTAB Cardiovascular: RRR, Normal S1, Normal S2, without murmur Abdomen: soft, non-tender, non-distended, positive bowel sound Neurological: unsteady - Procedures Procedures: Procedures Procedure Code Date INJECT/INFUSE NEC 99.29 04/12/12 Internal Medicine Assmt/Plan - Assessment Assessment: HYPERLIPIDEMIA COPD HTN ANEMIA MUSCLE WEAKNESS AHD - Plan Plan: FALL PRECAUTIONS CONTINUE CURRENT MEDICATIONS Nutritional Asmnt/Malnutr-PDOC - Dietary Evaluation Malnutrition Findings (Please click <Entered> for more info): Nutritional Asmnt/Malnutrition Start: 12/21/16 10: 03 Text: Status: Complete Freq: Document 12/21/16 10:03 GABRIELE (Rec: 12/21/16 10:11 GABRIELE BETTENCOURT- [email or web address]) Nutritional Asmnt/Malnutrition Patient General Information Nutritional Screening Moderate Risk Screening Diagnosis Unsp psychosis Pertinent Medical Hx/Surgical Hx COPD, psychosisi, HTN, schizophrenia, anemia Subjective Information Pt unable to carry on a conversation, or answer RD questions appropriately Current Diet Order/ Nutrition Support mechanical soft chopped Patient / S.O Can't verbalize diet edu Pertinent Medications maalox, D3, cogentin, lactulose, MOM Pertinent Labs no labs noted Nutritional Hx/Data Height 5 ft 7 in Height (Calculated Centimeters) 170.2 Current Weight (lbs) 153 lb Weight (Calculated Kilograms) 69.4 Weight (Calculated Grams) 12088.6 Recent Weight Change No Weight Status Approriate GI Symptoms GI Symptoms None Food Allergies No Cultural/Ethnic/Restorationist Belief none noted Usual diet at home mechanical soft Skin Integrity/Comment: uriah score 18; intact Estimated Nutritional Goals BEE in Kcals: Using Current wt Calories/Kcals/Kg 25-30kcals/kg Kcals Calculated 1725-2070kcals/day Protein: Using Current wt Protein g/k-1.2g/kg Protein Calculated 69-83g/day Fluid: ml 1725-2070ml/day (1ml/kcal) Nutritional Problem 1. Problem Problem No nutrition diangosis at this time. Intervention/Recommendation Comments Recommend continuing mechanical soft diet Expected Outcomes/Goals Expected Outcomes/Goals PO intake >75% of meals
[2016-12-22] MEDS: Benztropine 1 MG TAB PO SCH (20:22)
--- NOTE | 2016-12-22 21:42 | Progress Notes ---
DATE: 12/22/2016 SUBJECTIVE: The patient seen, chart reviewed, discussed with staff. The patient remains symptomatic, rambling, requiring emergency medications, aggressive, agitated, in a Olga chair, requiring intramuscular shots, confused, disoriented, trying to hit and kick staff, still violent, needing a lot of prompting and redirection. Medications were reviewed. Labs were reviewed. ASSESSMENT: The patient remains symptomatic, agitated, bizarre, on higher doses of psychotropics, still symptomatic. PLAN: Continue medications. Continue to monitor Depakote levels. JOB# [id number]
[2016-12-23] MEDS: Fenofibrate, Micronized 134 mg Cap PO SCH (09:05)
[2016-12-23] MEDS: Dextromethorphan/Quinidine 20mg/10mg Cap PO SCH ×2 (09:06→21:47)
[2016-12-23] MEDS: Lactulose 10 Gm/15 mL 30mL UDC PO SCH (09:14)
[2016-12-23] MEDS: Multivitamin w/ Minerals Tab PO SCH (09:14)
--- NOTE | 2016-12-23 12:20 | Internal Medicine Prog Note ---
Internal Medicine Subjective - Subjective Service Date: 12/23/16 Patient is:: awake, confused Per staff patient has:: no adverse event, tolerating meds Internal Medicine Objective - Results Recent Labs: Laboratory Last Values Valproic Acid < 10.0 ug/mL (50.0-100.0) L 12/18/16 11:39 - Physical Exam Vitals and I&O: Vital Signs Temp 98.1 F 12/22/16 20:00 Pulse 64 12/23/16 12:00 Resp 19 12/22/16 20:00 BP 140/96 12/23/16 09:13 Pulse Ox 97 12/22/16 20:00 Intake & Output 12/22/16 12/23/16 12/23/16 18:59 06:59 18:59 Intake Total 600 Balance 600 Intake: Oral 600 Other: # Voids 3 2 # Bowel Movements 0 0 Active Medications: Current Medications Acetaminophen (Tylenol) 650 mg PO Q4HR PRN PRN Reason: Mild Pain / Temp above 100 Stop: 02/14/17 19:51 Al Hydrox/Mg Hydrox/Simethicone (Maalox) 30 ml PO Q4HR PRN PRN Reason: GI DISTRESS Stop: 02/14/17 19:51 Benztropine Mesylate (Cogentin) 1 mg PO HS ELKIN Stop: 02/15/17 20:59 Last Admin: 12/22/16 20:22 Dose: 1 mg Cholecalciferol (Vitamin D3) 1,000 iu PO DAILY ELKIN Stop: 02/15/17 08:59 Last Admin: 12/23/16 09:06 Dose: 1,000 iu Clonazepam (Klonopin) 0.5 mg PO BID ELKIN PRN Reason: Protocol Stop: 02/18/17 08:59 Last Admin: 12/23/16 09:07 Dose: 0.5 mg Dextromethorphan/Quinidine (Nuedexta 20mg-10mg) 1 cap PO Q12HR ELKIN Stop: 02/15/17 08:59 Last Admin: 12/23/16 09:06 Dose: 1 cap Divalproex Sodium (Depakote Dr) 750 mg PO BID ELKIN PRN Reason: Protocol Stop: 02/15/17 08:59 Last Admin: 12/23/16 09:06 Dose: 750 mg Fenofibrate (Tricor) 134 mg PO DAILY ELKIN Stop: 02/17/17 08:59 Last Admin: 12/23/16 09:05 Dose: 134 mg Hydrochlorothiazide (Hctz) 50 mg PO DAILY [facility] Stop: 02/15/17 08:59 Last Admin: 12/23/16 09:13 Dose: 50 mg Lactulose (Cephulac) 20 gm PO DAILY ELKIN Stop: 02/15/17 08:59 Last Admin: 12/23/16 09:14 Dose: 20 gm Lorazepam (Ativan) 1 mg PO Q6HR PRN; Protocol PRN Reason: Anxiety Stop: 02/14/17 21:38 Last Admin: 12/23/16 10:06 Dose: 1 mg Magnesium Hydroxide (Milk Of Magnesia) 30 ml PO HS PRN PRN Reason: Constipation Quetiapine Fumarate (Seroquel) 300 mg PO BID ELKIN PRN Reason: Protocol Stop: 02/16/17 08:59 Last Admin: 12/23/16 09:06 Dose: 300 mg Zolpidem Tartrate (Ambien) 5 mg PO HS PRN PRN Reason: Insomnia Stop: 02/14/17 19:51 Last Admin: 12/19/16 21:33 Dose: 5 mg General: alert HEENT: NC/AT, PERRLA Neck: Supple Lungs: CTAB Cardiovascular: RRR, Normal S1, Normal S2, without murmur Abdomen: soft, non-tender, non-distended, positive bowel sound Neurological: unsteady - Procedures Procedures: Procedures Procedure Code Date INJECT/INFUSE NEC 99.29 04/12/12 Internal Medicine Assmt/Plan - Assessment Assessment: HYPERLIPIDEMIA COPD HTN ANEMIA MUSCLE WEAKNESS AHD - Plan Plan: FALL PRECAUTIONS CONTINUE CURRENT MEDICATIONS Nutritional Asmnt/Malnutr-PDOC - Dietary Evaluation Malnutrition Findings (Please click <Entered> for more info): Nutritional Asmnt/Malnutrition Start: 12/21/16 10: 03 Text: Status: Complete Freq: Document 12/21/16 10:03 GABRIELE (Rec: 12/21/16 10:11 GABRIELE BETTENCOURT- FNS1) Nutritional Asmnt/Malnutrition Patient General Information Nutritional Screening Moderate Risk Screening Diagnosis Unsp psychosis Pertinent Medical Hx/Surgical Hx COPD, psychosisi, HTN, schizophrenia, anemia Subjective Information Pt unable to carry on a conversation, or answer RD questions appropriately Current Diet Order/ Nutrition Support mechanical soft chopped Patient / S.O Can't verbalize diet edu Pertinent Medications maalox, D3, cogentin, lactulose, MOM Pertinent Labs no labs noted Nutritional Hx/Data Height 5 ft 7 in Height (Calculated Centimeters) 170.2 Current Weight (lbs) 153 lb Weight (Calculated Kilograms) 69.4 Weight (Calculated Grams) 44117.6 Recent Weight Change No Weight Status Approriate GI Symptoms GI Symptoms None Food Allergies No Cultural/Ethnic/Mu-Ism Belief none noted Usual diet at home mechanical soft Skin Integrity/Comment: uriah score 18; intact Estimated Nutritional Goals BEE in Kcals: Using Current wt Calories/Kcals/Kg 25-30kcals/kg Kcals Calculated 1725-2070kcals/day Protein: Using Current wt Protein g/k-1.2g/kg Protein Calculated 69-83g/day Fluid: ml 1725-2070ml/day (1ml/kcal) Nutritional Problem 1. Problem Problem No nutrition diangosis at this time. Intervention/Recommendation Comments Recommend continuing mechanical soft diet Expected Outcomes/Goals Expected Outcomes/Goals PO intake >75% of meals
[2016-12-23] MEDS: Benztropine 1 MG TAB PO SCH (21:47)
--- NOTE | 2016-12-24 01:27 | Progress Notes ---
DATE: 12/23/2016 SUBJECTIVE: Chart reviewed and the patient interviewed. Also discussed the patient's condition with the staff and reviewed records and labs. The patient is still extremely irritable and is still extremely agitated. The patient also is yelling and screaming constantly and she had to be given emergency dose of Haldol, Ativan, and Benadryl. She also is still disheveled and still has poor hygiene. She also is still unable to answer any of my questions coherently. Also, she gets aggressive with the staff when they try to help around with her ADLs. ASSESSMENT: The patient is still psychotic. TREATMENT PLAN: We will continue monitoring her behavior and her condition closely. also continue to work on poor impulse control and ineffective coping and we will continue to follow up closely. JOB# [id number]
[2016-12-24] MEDS: Lactulose 10 Gm/15 mL 30mL UDC PO SCH (10:16)
[2016-12-24] MEDS: Dextromethorphan/Quinidine 20mg/10mg Cap PO SCH ×2 (10:16→21:13)
[2016-12-24] MEDS: Fenofibrate, Micronized 134 mg Cap PO SCH (10:17)
[2016-12-24] MEDS: Multivitamin w/ Minerals Tab PO SCH (10:18)
--- NOTE | 2016-12-24 15:03 | Internal Medicine Prog Note ---
Internal Medicine Subjective - Subjective Service Date: 12/24/16 Patient is:: awake, confused Per staff patient has:: no adverse event, tolerating meds Internal Medicine Objective - Results Recent Labs: Laboratory Last Values Valproic Acid < 10.0 ug/mL (50.0-100.0) L 12/18/16 11:39 - Physical Exam Vitals and I&O: Vital Signs Temp 98.3 F 12/23/16 20:20 Pulse 74 12/23/16 20:20 Resp 19 12/23/16 20:20 BP 134/73 12/23/16 20:20 Pulse Ox 97 12/23/16 20:20 Intake & Output 12/23/16 12/24/16 12/24/16 18:59 06:59 18:59 Intake Total 600 300 Balance 600 300 Intake: Oral 600 300 Other: # Voids 2 1 # Bowel Movements 0 0 Active Medications: Current Medications Acetaminophen (Tylenol) 650 mg PO Q4HR PRN PRN Reason: Mild Pain / Temp above 100 Stop: 02/14/17 19:51 Al Hydrox/Mg Hydrox/Simethicone (Maalox) 30 ml PO Q4HR PRN PRN Reason: GI DISTRESS Stop: 02/14/17 19:51 Benztropine Mesylate (Cogentin) 1 mg PO HS ELKIN Stop: 02/15/17 20:59 Last Admin: 12/23/16 21:47 Dose: 1 mg Cholecalciferol (Vitamin D3) 1,000 iu PO DAILY ELKIN Stop: 02/15/17 08:59 Last Admin: 12/24/16 10:17 Dose: 1,000 iu Clonazepam (Klonopin) 1 mg PO BID ELKIN PRN Reason: Protocol Stop: 02/18/17 08:59 Dextromethorphan/Quinidine (Nuedexta 20mg-10mg) 1 cap PO Q12HR ELKIN Stop: 02/15/17 08:59 Last Admin: 12/24/16 10:16 Dose: 1 cap Divalproex Sodium (Depakote Dr) 750 mg PO BID ELKIN PRN Reason: Protocol Stop: 02/15/17 08:59 Last Admin: 12/24/16 10:17 Dose: 750 mg Fenofibrate (Tricor) 134 mg PO DAILY ELKIN Stop: 02/17/17 08:59 Last Admin: 12/24/16 10:17 Dose: 134 mg Hydrochlorothiazide (Hctz) 50 mg PO DAILY ELKIN Stop: 02/15/17 08:59 Last Admin: 12/24/16 10:38 Dose: Not Given Lactulose (Cephulac) 20 gm PO DAILY ELKIN Stop: 02/15/17 08:59 Last Admin: 12/24/16 10:16 Dose: 20 gm Lorazepam (Ativan) 1 mg PO Q6HR PRN; Protocol PRN Reason: Anxiety Stop: 02/14/17 21:38 Last Admin: 12/23/16 21:46 Dose: 1 mg Magnesium Hydroxide (Milk Of Magnesia) 30 ml PO HS PRN PRN Reason: Constipation Quetiapine Fumarate (Seroquel) 300 mg PO BID ELKIN PRN Reason: Protocol Stop: 02/16/17 08:59 Last Admin: 12/24/16 10:17 Dose: 300 mg Zolpidem Tartrate (Ambien) 5 mg PO HS PRN PRN Reason: Insomnia Stop: 02/14/17 19:51 Last Admin: 12/19/16 21:33 Dose: 5 mg General: alert HEENT: NC/AT, PERRLA Neck: Supple Lungs: CTAB Cardiovascular: RRR, Normal S1, Normal S2, without murmur Abdomen: soft, non-tender, non-distended, positive bowel sound Neurological: unsteady - Procedures Procedures: Procedures Procedure Code Date INJECT/INFUSE NEC 99.29 04/12/12 Internal Medicine Assmt/Plan - Assessment Assessment: HYPERLIPIDEMIA COPD HTN ANEMIA MUSCLE WEAKNESS AHD - Plan Plan: FALL PRECAUTIONS CONTINUE CURRENT MEDICATIONS Nutritional Asmnt/Malnutr-PDOC - Dietary Evaluation Malnutrition Findings (Please click <Entered> for more info): Nutritional Asmnt/Malnutrition Start: 12/21/16 10: 03 Text: Status: Complete Freq: Document 12/21/16 10:03 GABRIELE (Rec: 12/21/16 10:11 GABRIELE LUNA) Nutritional Asmnt/Malnutrition Patient General Information Nutritional Screening Moderate Risk Screening Diagnosis Unsp psychosis Pertinent Medical Hx/Surgical Hx COPD, psychosisi, HTN, schizophrenia, anemia Subjective Information Pt unable to carry on a conversation, or answer RD questions appropriately Current Diet Order/ Nutrition Support mechanical soft chopped Patient / S.O Can't verbalize diet edu Pertinent Medications maalox, D3, cogentin, lactulose, MOM Pertinent Labs no labs noted Nutritional Hx/Data Height 5 ft 7 in Height (Calculated Centimeters) 170.2 Current Weight (lbs) 153 lb Weight (Calculated Kilograms) 69.4 Weight (Calculated Grams) 62291.6 Recent Weight Change No Weight Status Approriate GI Symptoms GI Symptoms None Food Allergies No Cultural/Ethnic/Sabianism Belief none noted Usual diet at home mechanical soft Skin Integrity/Comment: uriah score 18; intact Estimated Nutritional Goals BEE in Kcals: Using Current wt Calories/Kcals/Kg 25-30kcals/kg Kcals Calculated 1725-2070kcals/day Protein: Using Current wt Protein g/k-1.2g/kg Protein Calculated 69-83g/day Fluid: ml 1725-2070ml/day (1ml/kcal) Nutritional Problem 1. Problem Problem No nutrition diangosis at this time. Intervention/Recommendation Comments Recommend continuing mechanical soft diet Expected Outcomes/Goals Expected Outcomes/Goals PO intake >75% of meals
--- NOTE | 2016-12-24 19:31 | Progress Notes ---
DATE: 12/24/2016 SUBJECTIVE: Chart reviewed and the patient interviewed. Also discussed the patient's condition with the staff and reviewed records and labs. The patient is still extremely agitated and she is still in irritable and angry mood. The patient also is demanding. The patient also is still having episodes of yelling and screaming and is unable to follow any of the staff's directions. The patient also is still having mood swings and is still unable to follow directions and she is disheveled. ASSESSMENT: The patient is still psychotic and is still agitated. TREATMENT PLAN: We will continue monitoring her behavior and her condition closely. Also, we will increase Klonopin to 1 mg twice a day and we will continue Seroquel 300 mg twice a day and Depakote 750 twice a day. Also, we will monitor Depakote blood level. JOB# [id number]
[2016-12-24] MEDS: Benztropine 1 MG TAB PO SCH (21:13)
--- NOTE | 2016-12-25 07:08 | Progress Notes ---
DATE: 12/25/2016 SUBJECTIVE: Chart reviewed and the patient interviewed. Also discussed the patient's condition with the staff and reviewed records and labs. The patient continued to be extremely irritable and extremely agitated. The patient also is actively hallucinating and is continuously talking to herself. The patient also is aggressive and restless and when I tried to talk to her, she kept screaming and yelling, "get out, get out." She wants to be left alone. The patient also is talking to imaginary objects and she is unable to follow any of my directions. The patient also is yelling and screaming constantly. The patient during interview is disheveled and she is trying to kick and punch imaginary objects with her leg and fist. She also is constantly talking and yelling and screaming. She also is rambling and did not answer any of my questions because of her agitation and confusion. ASSESSMENT: The patient is still psychotic and still can be dangerous to others. TREATMENT PLAN: We will monitor the patient's behavior and her condition closely. Also, Klonopin was added yesterday, but it seems that patient is still very psychotic and Klonopin 1 mg is not helping the patient much. We will increase Seroquel to 400 mg twice a day. Also, we will monitor Depakote blood level. We will continue to follow up closely. JOB# [id number]
[2016-12-25] MEDS: Fenofibrate, Micronized 134 mg Cap PO SCH (09:10)
[2016-12-25] MEDS: Dextromethorphan/Quinidine 20mg/10mg Cap PO SCH ×2 (09:10→20:56)
[2016-12-25] MEDS: Lactulose 10 Gm/15 mL 30mL UDC PO SCH (09:11)
[2016-12-25] MEDS: Multivitamin w/ Minerals Tab PO SCH (09:11)
[2016-12-25] MEDS ORDERED: Haloperidol Lactate 5 mg/mL 1mL Vial IM ONE (10:12)
[2016-12-25] MEDS ORDERED: Haloperidol Lactate 5 mg/mL 1mL Vial ONE (10:14)
--- NOTE | 2016-12-25 13:44 | Internal Medicine Prog Note ---
Internal Medicine Subjective - Subjective Service Date: 12/25/16 Patient is:: awake, confused Per staff patient has:: no adverse event, tolerating meds Internal Medicine Objective - Results Recent Labs: Laboratory Last Values Valproic Acid < 10.0 ug/mL (50.0-100.0) L 12/18/16 11:39 - Physical Exam Vitals and I&O: Vital Signs Temp 98.4 F 12/25/16 06:17 Pulse 72 12/25/16 06:17 Resp 20 12/25/16 06:17 BP 106/56 12/25/16 06:17 Pulse Ox 98 12/25/16 06:17 Intake & Output 12/24/16 12/25/16 12/25/16 18:59 06:59 18:59 Intake Total 850 240 Balance 850 240 Intake: Oral 850 240 Other: # Voids 4 3 # Bowel Movements 1 0 Active Medications: Current Medications Acetaminophen (Tylenol) 650 mg PO Q4HR PRN PRN Reason: Mild Pain / Temp above 100 Stop: 02/14/17 19:51 Al Hydrox/Mg Hydrox/Simethicone (Maalox) 30 ml PO Q4HR PRN PRN Reason: GI DISTRESS Stop: 02/14/17 19:51 Benztropine Mesylate (Cogentin) 1 mg PO HS ELKIN Stop: 02/15/17 20:59 Last Admin: 12/24/16 21:13 Dose: 1 mg Cholecalciferol (Vitamin D3) 1,000 iu PO DAILY ELKIN Stop: 02/15/17 08:59 Last Admin: 12/25/16 09:10 Dose: Not Given Clonazepam (Klonopin) 1 mg PO BID ELKIN Stop: 02/23/17 08:59 Last Admin: 12/25/16 09:10 Dose: Not Given Dextromethorphan/Quinidine (Nuedexta 20mg-10mg) 1 cap PO Q12HR ELKIN Stop: 02/15/17 08:59 Last Admin: 12/25/16 09:10 Dose: Not Given Divalproex Sodium (Depakote Dr) 750 mg PO BID ELKIN PRN Reason: Protocol Stop: 02/15/17 08:59 Last Admin: 12/25/16 09:10 Dose: 750 mg Fenofibrate (Tricor) 134 mg PO DAILY ELKIN Stop: 02/17/17 08:59 Last Admin: 12/25/16 09:10 Dose: Not Given Hydrochlorothiazide (Hctz) 50 mg PO DAILY ELKIN Stop: 02/15/17 08:59 Last Admin: 12/25/16 09:10 Dose: Not Given Lactulose (Cephulac) 20 gm PO DAILY ELKIN Stop: 02/15/17 08:59 Last Admin: 12/25/16 09:11 Dose: Not Given Lorazepam (Ativan) 1 mg PO Q6HR PRN; Protocol PRN Reason: Anxiety Stop: 02/14/17 21:38 Last Admin: 12/23/16 21:46 Dose: 1 mg Magnesium Hydroxide (Milk Of Magnesia) 30 ml PO HS PRN PRN Reason: Constipation Quetiapine Fumarate (Seroquel) 400 mg PO BID ELKIN PRN Reason: Protocol Stop: 02/23/17 08:59 Last Admin: 12/25/16 09:09 Dose: 400 mg Zolpidem Tartrate (Ambien) 5 mg PO HS PRN PRN Reason: Insomnia Stop: 02/14/17 19:51 Last Admin: 12/24/16 22:57 Dose: 5 mg General: alert HEENT: NC/AT, PERRLA Neck: Supple Lungs: CTAB Cardiovascular: RRR, Normal S1, Normal S2, without murmur Abdomen: soft, non-tender, non-distended, positive bowel sound Neurological: unsteady - Procedures Procedures: Procedures Procedure Code Date INJECT/INFUSE NEC 99.29 04/12/12 Internal Medicine Assmt/Plan - Assessment Assessment: HYPERLIPIDEMIA COPD HTN ANEMIA MUSCLE WEAKNESS AHD - Plan Plan: FALL PRECAUTIONS CONTINUE CURRENT MEDICATIONS Nutritional Asmnt/Malnutr-PDOC - Dietary Evaluation Malnutrition Findings (Please click <Entered> for more info): Nutritional Asmnt/Malnutrition Start: 12/21/16 10: 03 Text: Status: Complete Freq: Document 12/21/16 10:03 GABRIELE (Rec: 12/21/16 10:11 GABRIELE LUNA) Nutritional Asmnt/Malnutrition Patient General Information Nutritional Screening Moderate Risk Screening Diagnosis Unsp psychosis Pertinent Medical Hx/Surgical Hx COPD, psychosisi, HTN, schizophrenia, anemia Subjective Information Pt unable to carry on a conversation, or answer RD questions appropriately Current Diet Order/ Nutrition Support mechanical soft chopped Patient / S.O Can't verbalize diet edu Pertinent Medications maalox, D3, cogentin, lactulose, MOM Pertinent Labs no labs noted Nutritional Hx/Data Height 5 ft 7 in Height (Calculated Centimeters) 170.2 Current Weight (lbs) 153 lb Weight (Calculated Kilograms) 69.4 Weight (Calculated Grams) 50526.6 Recent Weight Change No Weight Status Approriate GI Symptoms GI Symptoms None Food Allergies No Cultural/Ethnic/Buddhism Belief none noted Usual diet at home mechanical soft Skin Integrity/Comment: uriah score 18; intact Estimated Nutritional Goals BEE in Kcals: Using Current wt Calories/Kcals/Kg 25-30kcals/kg Kcals Calculated 1725-2070kcals/day Protein: Using Current wt Protein g/k-1.2g/kg Protein Calculated 69-83g/day Fluid: ml 1725-2070ml/day (1ml/kcal) Nutritional Problem 1. Problem Problem No nutrition diangosis at this time. Intervention/Recommendation Comments Recommend continuing mechanical soft diet Expected Outcomes/Goals Expected Outcomes/Goals PO intake >75% of meals
[2016-12-25] MEDS: Benztropine 1 MG TAB PO SCH (20:55)
--- NOTE | 2016-12-26 09:21 | Progress Notes ---
DATE: 12/26/2016 SUBJECTIVE: Chart reviewed and the patient interviewed. Also discussed the patient's condition with the staff and reviewed records and labs. The patient continued to be extremely agitated and extremely irritable. The patient also is still yelling and screaming and talking to herself, talking to imaginary objects nonstop. The patient also was not able to follow any of staff directions. Yesterday, the patient was extremely agitated and aggressive with the staff, and she had to be given Haldol, Ativan, and Benadryl emergency dose to calm her down. She is still in angry and irritable mood and is still actively hallucinating and talking to herself. Also, personal hygiene is still poor. ASSESSMENT: The patient is still psychotic and needs close monitoring. TREATMENT PLAN: We will continue monitoring her behavior and her condition closely. Also, yesterday, I increased the Seroquel to 400 mg twice a day and continued the Depakote and Klonopin, same dose. We will continue same dose today and continue working on behavioral modification and on her extreme irritability and agitation. JOB# [id number]
[2016-12-26] MEDS: Dextromethorphan/Quinidine 20mg/10mg Cap PO SCH ×2 (09:38→20:21)
[2016-12-26] MEDS: Lactulose 10 Gm/15 mL 30mL UDC PO SCH (09:39)
[2016-12-26] MEDS: Multivitamin w/ Minerals Tab PO SCH (09:39)
[2016-12-26] MEDS: Fenofibrate, Micronized 134 mg Cap PO SCH (09:39)
[2016-12-26] MEDS ORDERED: Haloperidol Lactate 5 mg/mL 1mL Vial IM STA (13:42)
[2016-12-26] MEDS ORDERED: Haloperidol Lactate 5 mg/mL 1mL Vial ONE (13:43)
--- NOTE | 2016-12-26 14:30 | Internal Medicine Prog Note ---
Internal Medicine Subjective - Subjective Service Date: 12/26/16 Patient is:: awake, confused Per staff patient has:: no adverse event, tolerating meds Internal Medicine Objective - Results Recent Labs: Laboratory Last Values Valproic Acid < 10.0 ug/mL (50.0-100.0) L 12/18/16 11:39 - Physical Exam Vitals and I&O: Vital Signs Temp 97.2 F 12/25/16 20:00 Pulse 93 12/25/16 20:00 Resp 18 12/25/16 20:00 BP 95/70 12/25/16 20:00 Pulse Ox 98 12/25/16 20:00 Intake & Output 12/25/16 12/26/16 12/26/16 18:59 06:59 18:59 Intake Total 600 Balance 600 Intake: Oral 600 Other: # Voids 3 # Bowel Movements 0 Active Medications: Current Medications Acetaminophen (Tylenol) 650 mg PO Q4HR PRN PRN Reason: Mild Pain / Temp above 100 Stop: 02/14/17 19:51 Al Hydrox/Mg Hydrox/Simethicone (Maalox) 30 ml PO Q4HR PRN PRN Reason: GI DISTRESS Stop: 02/14/17 19:51 Benztropine Mesylate (Cogentin) 1 mg PO HS ELKIN Stop: 02/15/17 20:59 Last Admin: 12/25/16 20:55 Dose: Not Given Cholecalciferol (Vitamin D3) 1,000 iu PO DAILY ELKIN Stop: 02/15/17 08:59 Last Admin: 12/26/16 09:38 Dose: Not Given Clonazepam (Klonopin) 1 mg PO BID ELKIN Stop: 02/23/17 08:59 Last Admin: 12/26/16 09:38 Dose: Not Given Dextromethorphan/Quinidine (Nuedexta 20mg-10mg) 1 cap PO Q12HR ELKIN Stop: 02/15/17 08:59 Last Admin: 12/26/16 09:38 Dose: Not Given Diphenhydramine HCl (Benadryl 50 Mg/Ml) 50 mg IM ONCE STA Stop: 12/26/16 13:47 Last Admin: 12/26/16 13:52 Dose: 50 mg Divalproex Sodium (Depakote Dr) 750 mg PO BID ELKIN PRN Reason: Protocol Stop: 02/15/17 08:59 Last Admin: 12/26/16 09:39 Dose: Not Given Fenofibrate (Tricor) 134 mg PO DAILY ELKIN Stop: 02/17/17 08:59 Last Admin: 12/26/16 09:39 Dose: Not Given Haloperidol Lactate (Haldol) 5 mg IM ONCE STA Stop: 12/26/16 13:43 Last Admin: 12/26/16 13:52 Dose: 5 mg Hydrochlorothiazide (Hctz) 25 mg PO DAILY ELKIN Stop: 02/24/17 09:14 Lactulose (Cephulac) 20 gm PO DAILY ELKIN Stop: 02/15/17 08:59 Last Admin: 12/26/16 09:39 Dose: Not Given Lorazepam (Ativan) 1 mg PO Q6HR PRN; Protocol PRN Reason: Anxiety Stop: 02/14/17 21:38 Last Admin: 12/23/16 21:46 Dose: 1 mg Lorazepam (Ativan) 2 mg IM NOW STA PRN Reason: Protocol Stop: 12/26/16 13:46 Last Admin: 12/26/16 13:52 Dose: 2 mg Magnesium Hydroxide (Milk Of Magnesia) 30 ml PO HS PRN PRN Reason: Constipation Quetiapine Fumarate (Seroquel) 400 mg PO BID ELKIN PRN Reason: Protocol Stop: 02/23/17 08:59 Last Admin: 12/26/16 09:39 Dose: Not Given Zolpidem Tartrate (Ambien) 5 mg PO HS PRN PRN Reason: Insomnia Stop: 02/14/17 19:51 Last Admin: 12/24/16 22:57 Dose: 5 mg General: alert HEENT: NC/AT, PERRLA Neck: Supple Lungs: CTAB Cardiovascular: RRR, Normal S1, Normal S2, without murmur Abdomen: soft, non-tender, non-distended, positive bowel sound Neurological: unsteady - Procedures Procedures: Procedures Procedure Code Date INJECT/INFUSE NEC 99.29 04/12/12 Internal Medicine Assmt/Plan - Assessment Assessment: HYPERLIPIDEMIA COPD HTN ANEMIA MUSCLE WEAKNESS AHD - Plan Plan: FALL PRECAUTIONS CONTINUE CURRENT MEDICATIONS Nutritional Asmnt/Malnutr-PDOC - Dietary Evaluation Malnutrition Findings (Please click <Entered> for more info): Nutritional Asmnt/Malnutrition Start: 12/21/16 10: 03 Text: Status: Complete Freq: Document 12/21/16 10:03 GABRIELE (Rec: 12/21/16 10:11 GABRIELE RUT- [email or web address]) Nutritional Asmnt/Malnutrition Patient General Information Nutritional Screening Moderate Risk Screening Diagnosis Unsp psychosis Pertinent Medical Hx/Surgical Hx COPD, psychosisi, HTN, schizophrenia, anemia Subjective Information Pt unable to carry on a conversation, or answer RD questions appropriately Current Diet Order/ Nutrition Support mechanical soft chopped Patient / S.O Can't verbalize diet edu Pertinent Medications maalox, D3, cogentin, lactulose, MOM Pertinent Labs no labs noted Nutritional Hx/Data Height 5 ft 7 in Height (Calculated Centimeters) 170.2 Current Weight (lbs) 153 lb Weight (Calculated Kilograms) 69.4 Weight (Calculated Grams) 76275.6 Recent Weight Change No Weight Status Approriate GI Symptoms GI Symptoms None Food Allergies No Cultural/Ethnic/Jew Belief none noted Usual diet at home mechanical soft Skin Integrity/Comment: uriah score 18; intact Estimated Nutritional Goals BEE in Kcals: Using Current wt Calories/Kcals/Kg 25-30kcals/kg Kcals Calculated 1725-2070kcals/day Protein: Using Current wt Protein g/k-1.2g/kg Protein Calculated 69-83g/day Fluid: ml 1725-2070ml/day (1ml/kcal) Nutritional Problem 1. Problem Problem No nutrition diangosis at this time. Intervention/Recommendation Comments Recommend continuing mechanical soft diet Expected Outcomes/Goals Expected Outcomes/Goals PO intake >75% of meals
[2016-12-26] MEDS ORDERED: Haloperidol Lactate 5 mg/mL 1mL Vial IM ONE (14:45)
[2016-12-26] MEDS: Benztropine 1 MG TAB PO SCH (20:21)
[2016-12-27] MEDS: Dextromethorphan/Quinidine 20mg/10mg Cap PO SCH ×2 (08:05→21:48)
[2016-12-27] MEDS: Lactulose 10 Gm/15 mL 30mL UDC PO SCH (08:05)
[2016-12-27] MEDS: Fenofibrate, Micronized 134 mg Cap PO SCH (08:06)
[2016-12-27] MEDS: Multivitamin w/ Minerals Tab PO SCH (08:07)
[2016-12-27] MEDS ORDERED: Haloperidol Lactate 5 mg/mL 1mL Vial ONE (09:55)
[2016-12-27] MEDS ORDERED: Haloperidol Lactate 5 mg/mL 1mL Vial IM ONE (10:00)
--- NOTE | 2016-12-27 10:40 | Internal Medicine Prog Note ---
Internal Medicine Subjective - Subjective Service Date: 12/27/16 Patient is:: awake, confused Per staff patient has:: no adverse event, tolerating meds Internal Medicine Objective - Results Recent Labs: Laboratory Last Values Valproic Acid < 10.0 ug/mL (50.0-100.0) L 12/18/16 11:39 - Physical Exam Vitals and I&O: Vital Signs Temp 98.3 F 12/27/16 06:39 Pulse 63 12/27/16 06:39 Resp 20 12/27/16 06:39 BP 121/64 12/27/16 08:06 Pulse Ox 99 12/27/16 06:39 Intake & Output 12/26/16 12/27/16 12/27/16 18:59 06:59 18:59 Intake Total 1800 120 Balance 1800 120 Intake: Oral 1800 120 Other: # Voids 4 3 # Bowel Movements 0 Active Medications: Current Medications Acetaminophen (Tylenol) 650 mg PO Q4HR PRN PRN Reason: Mild Pain / Temp above 100 Stop: 02/14/17 19:51 Al Hydrox/Mg Hydrox/Simethicone (Maalox) 30 ml PO Q4HR PRN PRN Reason: GI DISTRESS Stop: 02/14/17 19:51 Benztropine Mesylate (Cogentin) 1 mg PO HS ELKIN Stop: 02/15/17 20:59 Last Admin: 12/26/16 20:21 Dose: 1 mg Cholecalciferol (Vitamin D3) 1,000 iu PO DAILY ELKIN Stop: 02/15/17 08:59 Last Admin: 12/27/16 08:07 Dose: 1,000 iu Clonazepam (Klonopin) 2 mg PO BID ELKIN Stop: 02/25/17 16:59 Dextromethorphan/Quinidine (Nuedexta 20mg-10mg) 1 cap PO Q12HR ELKIN Stop: 02/15/17 08:59 Last Admin: 12/27/16 08:05 Dose: 1 cap Divalproex Sodium (Depakote Dr) 1,000 mg PO BID ELKIN PRN Reason: Protocol Stop: 02/15/17 16:59 Fenofibrate (Tricor) 134 mg PO DAILY ELKIN Stop: 02/17/17 08:59 Last Admin: 12/27/16 08:06 Dose: 134 mg Hydrochlorothiazide (Hctz) 25 mg PO DAILY ELKIN Stop: 02/24/17 09:14 Last Admin: 12/27/16 08:06 Dose: 25 mg Lactulose (Cephulac) 20 gm PO DAILY ELKIN Stop: 02/15/17 08:59 Last Admin: 12/27/16 08:05 Dose: 20 gm Lorazepam (Ativan) 1 mg PO Q6HR PRN; Protocol PRN Reason: Anxiety Stop: 02/14/17 21:38 Last Admin: 12/23/16 21:46 Dose: 1 mg Magnesium Hydroxide (Milk Of Magnesia) 30 ml PO HS PRN PRN Reason: Constipation Quetiapine Fumarate (Seroquel) 400 mg PO BID ELKIN PRN Reason: Protocol Stop: 02/23/17 08:59 Last Admin: 12/27/16 08:06 Dose: 400 mg Zolpidem Tartrate (Ambien) 5 mg PO HS PRN PRN Reason: Insomnia Stop: 02/14/17 19:51 Last Admin: 12/26/16 20:21 Dose: 5 mg General: alert HEENT: NC/AT, PERRLA Neck: Supple Lungs: CTAB Cardiovascular: RRR, Normal S1, Normal S2, without murmur Abdomen: soft, non-tender, non-distended, positive bowel sound Neurological: unsteady - Procedures Procedures: Procedures Procedure Code Date INJECT/INFUSE NEC 99.29 04/12/12 Internal Medicine Assmt/Plan - Assessment Assessment: HYPERLIPIDEMIA COPD HTN ANEMIA MUSCLE WEAKNESS AHD - Plan Plan: FALL PRECAUTIONS CONTINUE CURRENT MEDICATIONS Nutritional Asmnt/Malnutr-PDOC - Dietary Evaluation Malnutrition Findings (Please click <Entered> for more info): Nutritional Asmnt/Malnutrition Start: 12/21/16 10: 03 Text: Status: Complete Freq: Document 12/21/16 10:03 GABRIELE (Rec: 12/21/16 10:11 GABRIELE BETTENCOURT- FN) Nutritional Asmnt/Malnutrition Patient General Information Nutritional Screening Moderate Risk Screening Diagnosis Unsp psychosis Pertinent Medical Hx/Surgical Hx COPD, psychosisi, HTN, schizophrenia, anemia Subjective Information Pt unable to carry on a conversation, or answer RD questions appropriately Current Diet Order/ Nutrition Support mechanical soft chopped Patient / S.O Can't verbalize diet edu Pertinent Medications maalox, D3, cogentin, lactulose, MOM Pertinent Labs no labs noted Nutritional Hx/Data Height 5 ft 7 in Height (Calculated Centimeters) 170.2 Current Weight (lbs) 153 lb Weight (Calculated Kilograms) 69.4 Weight (Calculated Grams) 24937.6 Recent Weight Change No Weight Status Approriate GI Symptoms GI Symptoms None Food Allergies No Cultural/Ethnic/Christianity Belief none noted Usual diet at home mechanical soft Skin Integrity/Comment: uriah score 18; intact Estimated Nutritional Goals BEE in Kcals: Using Current wt Calories/Kcals/Kg 25-30kcals/kg Kcals Calculated 1725-2070kcals/day Protein: Using Current wt Protein g/k-1.2g/kg Protein Calculated 69-83g/day Fluid: ml 1725-2070ml/day (1ml/kcal) Nutritional Problem 1. Problem Problem No nutrition diangosis at this time. Intervention/Recommendation Comments Recommend continuing mechanical soft diet Expected Outcomes/Goals Expected Outcomes/Goals PO intake >75% of meals
--- NOTE | 2016-12-27 11:41 | Progress Notes ---
DATE: 12/27/2016 SUBJECTIVE: Chart reviewed and the patient interviewed. Also discussed the patient's condition with the staff and reviewed records and labs. The patient is still extremely irritable and is still agitated. Also, the patient is still confused. The patient was trying to get off Olga chair and staff had to redirect her and then she gets agitated when staff tries to redirect her. The patient also is still rambling and her thought processes are disorganized. The patient is disheveled. ASSESSMENT: The patient is still psychotic and . TREATMENT PLAN: We will continue to monitoring her behavior and her condition closely. Also, working on adjusting psychotropic medications and we will continue to follow up. [facility]# [id number]
[2016-12-27] MEDS ORDERED: MICONAZOLE 2% VG SCH (21:00)
[2016-12-27] MEDS: Benztropine 1 MG TAB PO SCH (21:48)
[2016-12-28] MEDS: Fenofibrate, Micronized 134 mg Cap PO SCH (08:29)
[2016-12-28] MEDS: Dextromethorphan/Quinidine 20mg/10mg Cap PO SCH ×2 (08:29→22:54)
[2016-12-28] MEDS: Multivitamin w/ Minerals Tab PO SCH (08:29)
[2016-12-28] MEDS: Lactulose 10 Gm/15 mL 30mL UDC PO SCH (08:30)
--- NOTE | 2016-12-28 14:51 | Internal Medicine Prog Note ---
Internal Medicine Subjective - Subjective Patient seen and examined:: with staff, chart reviewed Patient is:: awake, non-verbal, non-interactive, pepe chair, confused, stares blankly Per staff patient has:: no adverse event, confused, tolerating meds Internal Medicine Objective - Results Recent Labs: Laboratory Last Values Valproic Acid < 10.0 ug/mL (50.0-100.0) L 12/18/16 11:39 - Physical Exam Vitals and I&O: Vital Signs Temp 97.2 F 12/28/16 06:00 Pulse 69 12/28/16 11:49 Resp 18 12/28/16 11:49 BP 124/87 12/28/16 08:29 Pulse Ox 69 12/28/16 06:00 Intake & Output 12/27/16 12/28/16 12/28/16 18:59 06:59 18:59 Intake Total 600 Balance 600 Intake: Oral 600 Other: # Voids 2 1 # Bowel Movements 0 Active Medications: Current Medications Acetaminophen (Tylenol) 650 mg PO Q4HR PRN PRN Reason: Mild Pain / Temp above 100 Stop: 02/14/17 19:51 Al Hydrox/Mg Hydrox/Simethicone (Maalox) 30 ml PO Q4HR PRN PRN Reason: GI DISTRESS Stop: 02/14/17 19:51 Benztropine Mesylate (Cogentin) 1 mg PO HS [facility] Stop: 02/15/17 20:59 Last Admin: 12/27/16 21:48 Dose: 1 mg Cholecalciferol (Vitamin D3) 1,000 iu PO DAILY ELKIN Stop: 02/15/17 08:59 Last Admin: 12/28/16 08:29 Dose: 1,000 iu Clonazepam (Klonopin) 2 mg PO BID ELKIN Stop: 02/25/17 16:59 Last Admin: 12/28/16 08:28 Dose: 2 mg Dextromethorphan/Quinidine (Nuedexta 20mg-10mg) 1 cap PO Q12HR ELKIN Stop: 02/15/17 08:59 Last Admin: 12/28/16 08:29 Dose: 1 cap Divalproex Sodium (Depakote Dr) 1,000 mg PO BID ELKIN PRN Reason: Protocol Stop: 02/15/17 16:59 Last Admin: 12/28/16 08:29 Dose: 1,000 mg Fenofibrate (Tricor) 134 mg PO DAILY ELKIN Stop: 02/17/17 08:59 Last Admin: 12/28/16 08:29 Dose: 134 mg Hydrochlorothiazide (Hctz) 25 mg PO DAILY ELKIN Stop: 02/24/17 09:14 Last Admin: 12/28/16 08:29 Dose: 25 mg Lactulose (Cephulac) 20 gm PO DAILY ELKIN Stop: 02/15/17 08:59 Last Admin: 12/28/16 08:30 Dose: 20 gm Lorazepam (Ativan) 1 mg PO Q6HR PRN; Protocol PRN Reason: Anxiety Stop: 02/14/17 21:38 Last Admin: 12/27/16 21:48 Dose: 1 mg Magnesium Hydroxide (Milk Of Magnesia) 30 ml PO HS PRN PRN Reason: Constipation Quetiapine Fumarate (Seroquel) 400 mg PO BID ELKIN PRN Reason: Protocol Stop: 02/23/17 08:59 Last Admin: 12/28/16 08:29 Dose: 400 mg Zolpidem Tartrate (Ambien) 5 mg PO HS PRN PRN Reason: Insomnia Stop: 02/14/17 19:51 Last Admin: 12/26/16 20:21 Dose: 5 mg General: demented HEENT: NC/AT, PERRLA, thinning hair, poor dentition Neck: Supple Lungs: CTAB Cardiovascular: RRR, Normal S1, Normal S2, without murmur Abdomen: soft, non-tender, non-distended, positive bowel sound Extremities: excoriation Neurological: muscle weakness, unsteady, unable to follow command - Procedures Procedures: Procedures Procedure Code Date INJECT/INFUSE NEC 99.29 04/12/12 Internal Medicine Assmt/Plan - Assessment Assessment: HYPERLIPIDEMIA COPD HTN ANEMIA MUSCLE WEAKNESS AHD - Plan Plan: fall precaution nutritional support cont on bp meds cpm dw rn Nutritional Asmnt/Malnutr-PDOC - Dietary Evaluation Malnutrition Findings (Please click <Entered> for more info): Nutritional Asmnt/Malnutrition Start: 12/21/16 10: 03 Text: Status: Complete Freq: Document 12/21/16 10:03 GABRIELE (Rec: 12/21/16 10:11 GABRIELE BETTENCOURT- FN) Nutritional Asmnt/Malnutrition Patient General Information Nutritional Screening Moderate Risk Screening Diagnosis Unsp psychosis Pertinent Medical Hx/Surgical Hx COPD, psychosisi, HTN, schizophrenia, anemia Subjective Information Pt unable to carry on a conversation, or answer RD questions appropriately Current Diet Order/ Nutrition Support mechanical soft chopped Patient / S.O Can't verbalize diet edu Pertinent Medications maalox, D3, cogentin, lactulose, MOM Pertinent Labs no labs noted Nutritional Hx/Data Height 1.7 m Height (Calculated Centimeters) 170.2 Current Weight (lbs) 69.4 kg Weight (Calculated Kilograms) 69.4 Weight (Calculated Grams) 64694.6 Recent Weight Change No Weight Status Approriate GI Symptoms GI Symptoms None Food Allergies No Cultural/Ethnic/Presybeterian Belief none noted Usual diet at home mechanical soft Skin Integrity/Comment: uriah score 18; intact Estimated Nutritional Goals BEE in Kcals: Using Current wt Calories/Kcals/Kg 25-30kcals/kg Kcals Calculated 1725-2070kcals/day Protein: Using Current wt Protein g/k-1.2g/kg Protein Calculated 69-83g/day Fluid: ml 1725-2070ml/day (1ml/kcal) Nutritional Problem 1. Problem Problem No nutrition diangosis at this time. Intervention/Recommendation Comments Recommend continuing mechanical soft diet Expected Outcomes/Goals Expected Outcomes/Goals PO intake >75% of meals
--- NOTE | 2016-12-28 19:46 | Progress Notes ---
DATE: 12/28/2016 SUBJECTIVE: Chart reviewed and the patient interviewed. Also discussed the patient's condition with the staff and reviewed records and labs. The patient is slightly quieter today and she is not as agitated and as irritable as yesterday. She also is easier to redirect her. Also, decreased yelling and screaming and not as angry. Also, when staff tries to help her with her ADLs she is easier to follow instructions. ASSESSMENT: The patient seems to be slightly less agitated and less psychotic. TREATMENT PLAN: Continue Depakote and Klonopin same dose. Also, continue to work on her behavior in the behavioral modification. Also, the patient's mother called yesterday, who is 88-year-old checking on the patient and how she is doing, according to staff. We will continue to monitor her behavior and working on discharge plans. JOB# [id number]
[2016-12-28] MEDS: Benztropine 1 MG TAB PO SCH (22:54)
[2016-12-29] MEDS: Lactulose 10 Gm/15 mL 30mL UDC PO SCH (08:46)
[2016-12-29] MEDS: Dextromethorphan/Quinidine 20mg/10mg Cap PO SCH ×2 (08:46→21:00)
[2016-12-29] MEDS: Fenofibrate, Micronized 134 mg Cap PO SCH (08:47)
[2016-12-29] MEDS: Multivitamin w/ Minerals Tab PO SCH (08:47)
--- NOTE | 2016-12-29 11:46 | Internal Medicine Prog Note ---
Internal Medicine Subjective - Subjective Patient seen and examined:: with staff, chart reviewed Patient is:: awake, non-verbal, non-interactive, pepe chair, confused, stares blankly Per staff patient has:: no adverse event, confused, tolerating meds Internal Medicine Objective - Results Recent Labs: Laboratory Last Values Valproic Acid < 10.0 ug/mL (50.0-100.0) L 12/18/16 11:39 - Physical Exam Vitals and I&O: Vital Signs Temp 97.4 F 12/29/16 07:25 Pulse 74 12/29/16 10:40 Resp 18 12/29/16 10:40 BP 95/69 12/29/16 08:46 Pulse Ox 98 12/29/16 07:25 Intake & Output 12/28/16 12/29/16 12/29/16 18:59 06:59 18:59 Intake Total 600 300 Balance 600 300 Intake: Oral 600 300 Other: # Voids 3 3 Active Medications: Current Medications Acetaminophen (Tylenol) 650 mg PO Q4HR PRN PRN Reason: Mild Pain / Temp above 100 Stop: 02/14/17 19:51 Al Hydrox/Mg Hydrox/Simethicone (Maalox) 30 ml PO Q4HR PRN PRN Reason: GI DISTRESS Stop: 02/14/17 19:51 Benztropine Mesylate (Cogentin) 1 mg PO HS [facility] Stop: 02/15/17 20:59 Last Admin: 12/28/16 22:54 Dose: Not Given Cholecalciferol (Vitamin D3) 1,000 iu PO DAILY [facility] Stop: 02/15/17 08:59 Last Admin: 12/29/16 08:47 Dose: 1,000 iu Clonazepam (Klonopin) 2 mg PO BID [facility] Stop: 02/25/17 16:59 Last Admin: 12/29/16 08:48 Dose: Not Given Dextromethorphan/Quinidine (Nuedexta 20mg-10mg) 1 cap PO Q12HR [facility] Stop: 02/15/17 08:59 Last Admin: 12/29/16 08:46 Dose: 1 cap Divalproex Sodium (Depakote Dr) 1,000 mg PO BID [facility] PRN Reason: Protocol Stop: 02/15/17 16:59 Last Admin: 12/29/16 08:47 Dose: 1,000 mg Fenofibrate (Tricor) 134 mg PO DAILY [facility] Stop: 02/17/17 08:59 Last Admin: 12/29/16 08:47 Dose: 134 mg Hydrochlorothiazide (Hctz) 25 mg PO DAILY [facility] Stop: 02/24/17 09:14 Last Admin: 12/29/16 08:46 Dose: Not Given Lactulose (Cephulac) 20 gm PO DAILY [facility] Stop: 02/15/17 08:59 Last Admin: 12/29/16 08:46 Dose: 20 gm Lorazepam (Ativan) 1 mg PO Q6HR PRN; Protocol PRN Reason: Anxiety Stop: 02/14/17 21:38 Last Admin: 12/29/16 03:28 Dose: 1 mg Quetiapine Fumarate (Seroquel) 400 mg PO BID [facility] PRN Reason: Protocol Stop: 02/23/17 08:59 Last Admin: 12/29/16 08:47 Dose: 400 mg Zolpidem Tartrate (Ambien) 5 mg PO HS PRN PRN Reason: Insomnia Stop: 02/14/17 19:51 Last Admin: 12/26/16 20:21 Dose: 5 mg General: demented HEENT: NC/AT, PERRLA, thinning hair, poor dentition Neck: Supple Lungs: CTAB Cardiovascular: RRR, Normal S1, Normal S2, without murmur Abdomen: soft, non-tender, non-distended, positive bowel sound Extremities: excoriation Neurological: muscle weakness, unsteady, unable to follow command - Procedures Procedures: Procedures Procedure Code Date INJECT/INFUSE NEC 99.29 04/12/12 Internal Medicine Assmt/Plan - Assessment Assessment: HYPERLIPIDEMIA COPD HTN ANEMIA MUSCLE WEAKNESS AHD - Plan Plan: fall precaution nutritional support cont on bp meds cpm dw rn Nutritional Asmnt/Malnutr-PDOC - Dietary Evaluation Malnutrition Findings (Please click <Entered> for more info): Nutritional Asmnt/Malnutrition Start: 12/21/16 10: 03 Text: Status: Complete Freq: Document 12/21/16 10:03 GABRIELE (Rec: 12/21/16 10:11 GABRIELE BETTENCOURT- [email or web address]) Nutritional Asmnt/Malnutrition Patient General Information Nutritional Screening Moderate Risk Screening Diagnosis Unsp psychosis Pertinent Medical Hx/Surgical Hx COPD, psychosisi, HTN, schizophrenia, anemia Subjective Information Pt unable to carry on a conversation, or answer RD questions appropriately Current Diet Order/ Nutrition Support mechanical soft chopped Patient / S.O Can't verbalize diet edu Pertinent Medications maalox, D3, cogentin, lactulose, MOM Pertinent Labs no labs noted Nutritional Hx/Data Height 1.7 m Height (Calculated Centimeters) 170.2 Current Weight (lbs) 69.4 kg Weight (Calculated Kilograms) 69.4 Weight (Calculated Grams) 91878.6 Recent Weight Change No Weight Status Approriate GI Symptoms GI Symptoms None Food Allergies No Cultural/Ethnic/Yarsani Belief none noted Usual diet at home mechanical soft Skin Integrity/Comment: uriah score 18; intact Estimated Nutritional Goals BEE in Kcals: Using Current wt Calories/Kcals/Kg 25-30kcals/kg Kcals Calculated 1725-2070kcals/day Protein: Using Current wt Protein g/k-1.2g/kg Protein Calculated 69-83g/day Fluid: ml 1725-2070ml/day (1ml/kcal) Nutritional Problem 1. Problem Problem No nutrition diangosis at this time. Intervention/Recommendation Comments Recommend continuing mechanical soft diet Expected Outcomes/Goals Expected Outcomes/Goals PO intake >75% of meals
--- NOTE | 2016-12-29 18:08 | Progress Notes ---
DATE: 12/29/2016 SUBJECTIVE: Chart reviewed and the patient interviewed. Also discussed the patient's condition with the staff and reviewed records and labs. The patient is still easily agitated and aggressive, although she seems to be slightly calmer than before and she is interacting slightly more. The patient also still has difficulty following directions and she is still easily agitated. She also still has episodes of being paranoid and suspicious. Otherwise, the patient is compliant with taking her medications with no side effects of medications. ASSESSMENT: The patient is still agitated and psychotic. TREATMENT PLAN: We will continue Depakote 750 twice a day and Klonopin 1 mg twice a day. Also, continue to work on behavioral modification and we will continue to follow up. [facility]# [id number]
[2016-12-29] MEDS: Benztropine 1 MG TAB PO SCH (21:00)
[2016-12-30] MEDS: Dextromethorphan/Quinidine 20mg/10mg Cap PO SCH ×2 (09:57→20:24)
[2016-12-30] MEDS: Fenofibrate, Micronized 134 mg Cap PO SCH (09:57)
[2016-12-30] MEDS: Multivitamin w/ Minerals Tab PO SCH (09:57)
[2016-12-30] MEDS: Lactulose 10 Gm/15 mL 30mL UDC PO SCH (10:00)
--- NOTE | 2016-12-30 12:04 | Internal Medicine Prog Note ---
Internal Medicine Subjective - Subjective Patient seen and examined:: with staff, chart reviewed Patient is:: awake, non-verbal, non-interactive, pepe chair, confused, stares blankly Per staff patient has:: no adverse event, confused, tolerating meds Internal Medicine Objective - Results Recent Labs: Laboratory Last Values Valproic Acid 101.1 ug/mL (50.0-100.0) H 12/30/16 08:00 - Physical Exam Vitals and I&O: Vital Signs Temp 97.8 F 12/30/16 06:26 Pulse 58 12/30/16 06:26 Resp 17 12/30/16 06:26 BP 98/80 12/30/16 10:00 Pulse Ox 98 12/30/16 06:26 Intake & Output 12/29/16 12/30/16 12/30/16 18:59 06:59 18:59 Intake Total 1100 Balance 1100 Intake: Oral 1100 Other: # Voids 4 # Bowel Movements 1 Active Medications: Current Medications Acetaminophen (Tylenol) 650 mg PO Q4HR PRN PRN Reason: Mild Pain / Temp above 100 Stop: 02/14/17 19:51 Al Hydrox/Mg Hydrox/Simethicone (Maalox) 30 ml PO Q4HR PRN PRN Reason: GI DISTRESS Stop: 02/14/17 19:51 Benztropine Mesylate (Cogentin) 1 mg PO HS [facility] Stop: 02/15/17 20:59 Last Admin: 12/29/16 21:00 Dose: Not Given Cholecalciferol (Vitamin D3) 1,000 iu PO DAILY [facility] Stop: 02/15/17 08:59 Last Admin: 12/30/16 09:57 Dose: 1,000 iu Clonazepam (Klonopin) 0.5 mg PO BID [facility] Stop: 02/28/17 08:59 Last Admin: 12/30/16 10:00 Dose: 0.5 mg Dextromethorphan/Quinidine (Nuedexta 20mg-10mg) 1 cap PO Q12HR [facility] Stop: 02/15/17 08:59 Last Admin: 12/30/16 09:57 Dose: 1 cap Divalproex Sodium (Depakote Dr) 1,000 mg PO BID [facility] PRN Reason: Protocol Stop: 02/15/17 16:59 Last Admin: 12/30/16 09:56 Dose: 1,000 mg Fenofibrate (Tricor) 134 mg PO DAILY [facility] Stop: 02/17/17 08:59 Last Admin: 12/30/16 09:57 Dose: 134 mg Hydrochlorothiazide (Hctz) 25 mg PO DAILY [facility] Stop: 02/24/17 09:14 Last Admin: 12/30/16 10:00 Dose: Not Given Lactulose (Cephulac) 20 gm PO DAILY [facility] Stop: 02/15/17 08:59 Last Admin: 12/30/16 10:00 Dose: 20 gm Lorazepam (Ativan) 1 mg PO Q6HR PRN; Protocol PRN Reason: Anxiety Stop: 02/14/17 21:38 Last Admin: 12/29/16 03:28 Dose: 1 mg Quetiapine Fumarate (Seroquel) 300 mg PO BID [facility] PRN Reason: Protocol Stop: 02/28/17 08:59 Last Admin: 12/30/16 09:58 Dose: 300 mg Zolpidem Tartrate (Ambien) 5 mg PO HS PRN PRN Reason: Insomnia Stop: 02/14/17 19:51 Last Admin: 12/26/16 20:21 Dose: 5 mg General: demented HEENT: NC/AT, PERRLA, thinning hair, poor dentition Neck: Supple Lungs: CTAB Cardiovascular: RRR, Normal S1, Normal S2, without murmur Abdomen: soft, non-tender, non-distended, positive bowel sound Extremities: excoriation Neurological: muscle weakness, unsteady, unable to follow command - Procedures Procedures: Procedures Procedure Code Date INJECT/INFUSE NEC 99.29 04/12/12 Internal Medicine Assmt/Plan - Assessment Assessment: HYPERLIPIDEMIA COPD HTN ANEMIA MUSCLE WEAKNESS AHD - Plan Plan: fall precaution nutritional support cont on bp meds cpm dw rn Nutritional Asmnt/Malnutr-PDOC - Dietary Evaluation Malnutrition Findings (Please click <Entered> for more info): Nutritional Asmnt/Malnutrition Start: 12/21/16 10: 03 Text: Status: Complete Freq: Document 12/21/16 10:03 GABRIELE (Rec: 12/21/16 10:11 GABRIELE BETTENCOURT [email or web address]) Nutritional Asmnt/Malnutrition Patient General Information Nutritional Screening Moderate Risk Screening Diagnosis Unsp psychosis Pertinent Medical Hx/Surgical Hx COPD, psychosisi, HTN, schizophrenia, anemia Subjective Information Pt unable to carry on a conversation, or answer RD questions appropriately Current Diet Order/ Nutrition Support mechanical soft chopped Patient / S.O Can't verbalize diet edu Pertinent Medications maalox, D3, cogentin, lactulose, MOM Pertinent Labs no labs noted Nutritional Hx/Data Height 1.7 m Height (Calculated Centimeters) 170.2 Current Weight (lbs) 69.4 kg Weight (Calculated Kilograms) 69.4 Weight (Calculated Grams) 72002.6 Recent Weight Change No Weight Status Approriate GI Symptoms GI Symptoms None Food Allergies No Cultural/Ethnic/Shinto Belief none noted Usual diet at home mechanical soft Skin Integrity/Comment: uriah score 18; intact Estimated Nutritional Goals BEE in Kcals: Using Current wt Calories/Kcals/Kg 25-30kcals/kg Kcals Calculated 1725-2070kcals/day Protein: Using Current wt Protein g/k-1.2g/kg Protein Calculated 69-83g/day Fluid: ml 1725-2070ml/day (1ml/kcal) Nutritional Problem 1. Problem Problem No nutrition diangosis at this time. Intervention/Recommendation Comments Recommend continuing mechanical soft diet Expected Outcomes/Goals Expected Outcomes/Goals PO intake >75% of meals
[2016-12-30] MEDS: Benztropine 1 MG TAB PO SCH (20:23)
--- NOTE | 2016-12-31 00:44 | Progress Notes ---
DATE: 12/30/2016 Case was discussed with staff of the patient, reviewed records. This is a 61-year-old female who was admitted on 12/16/2016. I originally saw the patient myself in the medical surgical unit. She was having syncope episodes, was transferred from [facility] and then transferred to ____ Medical Floor. She was agitated, aggressive, calling people by names. She is not sure why she was in this facility with a history of schizophrenia and dementia. She was uncooperative with information. The patient was seen by Dr. Butcher yesterday and that she was calmer and able to interact more, sometimes having difficulty following directions. The patient is on Depakote 750 mg twice a day, Klonopin 1 mg twice. The patient has been compliant with the medication with no side effects, no sedation, no nausea. She is on ____, Klonopin and Seroquel 300 mg twice a day with no side effects so Dr. Butcher finally gave an order for discharge, if she is stable and ready to go to a lesser level of care, in fact I do not see any since she is [facility] and they will be able to take care of her and the patient needs to follow up with primary care physician. JOB# [id number]
[2016-12-31] MEDS: Dextromethorphan/Quinidine 20mg/10mg Cap PO SCH ×2 (09:07→20:36)
[2016-12-31] MEDS: Lactulose 10 Gm/15 mL 30mL UDC PO SCH (09:08)
[2016-12-31] MEDS: Fenofibrate, Micronized 134 mg Cap PO SCH (09:08)
[2016-12-31] MEDS: Multivitamin w/ Minerals Tab PO SCH (09:09)
--- NOTE | 2016-12-31 11:53 | Internal Medicine Prog Note ---
Internal Medicine Subjective - Subjective Service Date: 12/31/16 Patient is:: awake, non-verbal, non-interactive, pepe chair, confused, stares blankly Per staff patient has:: no adverse event, confused, tolerating meds Internal Medicine Objective - Results Recent Labs: Laboratory Last Values Valproic Acid 101.1 ug/mL (50.0-100.0) H 12/30/16 08:00 - Physical Exam Vitals and I&O: Vital Signs Temp 97.9 F 12/31/16 06:27 Pulse 76 12/31/16 06:27 Resp 20 12/31/16 06:27 BP 113/63 12/31/16 09:08 Pulse Ox 99 12/31/16 06:27 Intake & Output 12/30/16 12/31/16 12/31/16 18:59 06:59 18:59 Intake Total 200 120 Balance 200 120 Intake: Oral 200 120 Other: # Voids 2 3 # Bowel Movements 0 Active Medications: Current Medications Acetaminophen (Tylenol) 650 mg PO Q4HR PRN PRN Reason: Mild Pain / Temp above 100 Stop: 02/14/17 19:51 Al Hydrox/Mg Hydrox/Simethicone (Maalox) 30 ml PO Q4HR PRN PRN Reason: GI DISTRESS Stop: 02/14/17 19:51 Benztropine Mesylate (Cogentin) 1 mg PO HS [facility] Stop: 02/15/17 20:59 Last Admin: 12/30/16 20:23 Dose: Not Given Cholecalciferol (Vitamin D3) 1,000 iu PO DAILY [facility] Stop: 02/15/17 08:59 Last Admin: 12/31/16 09:08 Dose: Not Given Clonazepam (Klonopin) 0.5 mg PO BID [facility] Stop: 02/28/17 08:59 Last Admin: 12/31/16 09:07 Dose: 0.5 mg Dextromethorphan/Quinidine (Nuedexta 20mg-10mg) 1 cap PO Q12HR [facility] Stop: 02/15/17 08:59 Last Admin: 12/31/16 09:07 Dose: 1 cap Divalproex Sodium (Depakote Dr) 1,000 mg PO BID [facility] PRN Reason: Protocol Stop: 02/15/17 16:59 Last Admin: 12/31/16 09:07 Dose: 1,000 mg Fenofibrate (Tricor) 134 mg PO DAILY [facility] Stop: 02/17/17 08:59 Last Admin: 12/31/16 09:08 Dose: Not Given Hydrochlorothiazide (Hctz) 25 mg PO DAILY [facility] Stop: 02/24/17 09:14 Last Admin: 12/31/16 09:08 Dose: Not Given Lactulose (Cephulac) 20 gm PO DAILY [facility] Stop: 02/15/17 08:59 Last Admin: 12/31/16 09:08 Dose: Not Given Lorazepam (Ativan) 1 mg PO Q6HR PRN; Protocol PRN Reason: Anxiety Stop: 02/14/17 21:38 Last Admin: 12/29/16 03:28 Dose: 1 mg Quetiapine Fumarate (Seroquel) 300 mg PO BID [facility] PRN Reason: Protocol Stop: 02/28/17 08:59 Last Admin: 12/31/16 09:07 Dose: 300 mg Zolpidem Tartrate (Ambien) 5 mg PO HS PRN PRN Reason: Insomnia Stop: 02/14/17 19:51 Last Admin: 12/26/16 20:21 Dose: 5 mg General: demented HEENT: NC/AT, PERRLA, thinning hair, poor dentition Neck: Supple Lungs: CTAB Cardiovascular: RRR, Normal S1, Normal S2, without murmur Abdomen: soft, non-tender, non-distended, positive bowel sound Extremities: excoriation Neurological: muscle weakness, unsteady, unable to follow command - Procedures Procedures: Procedures Procedure Code Date INJECT/INFUSE NEC 99.29 04/12/12 Internal Medicine Assmt/Plan - Assessment Assessment: HYPERLIPIDEMIA COPD HTN ANEMIA MUSCLE WEAKNESS AHD - Plan Plan: FALL PRECAUTIONS CONTINUE CURRENT MEDICATIONS Nutritional Asmnt/Malnutr-PDOC - Dietary Evaluation Malnutrition Findings (Please click <Entered> for more info): Nutritional Asmnt/Malnutrition Start: 12/21/16 10: 03 Text: Status: Complete Freq: Document 12/21/16 10:03 GABRIELE (Rec: 12/21/16 10:11 GABRIELE BETTENCOURT- FNS1) Nutritional Asmnt/Malnutrition Patient General Information Nutritional Screening Moderate Risk Screening Diagnosis Unsp psychosis Pertinent Medical Hx/Surgical Hx COPD, psychosisi, HTN, schizophrenia, anemia Subjective Information Pt unable to carry on a conversation, or answer RD questions appropriately Current Diet Order/ Nutrition Support mechanical soft chopped Patient / S.O Can't verbalize diet edu Pertinent Medications maalox, D3, cogentin, lactulose, MOM Pertinent Labs no labs noted Nutritional Hx/Data Height 5 ft 7 in Height (Calculated Centimeters) 170.2 Current Weight (lbs) 153 lb Weight (Calculated Kilograms) 69.4 Weight (Calculated Grams) 04780.6 Recent Weight Change No Weight Status Approriate GI Symptoms GI Symptoms None Food Allergies No Cultural/Ethnic/Jainism Belief none noted Usual diet at home mechanical soft Skin Integrity/Comment: uriah score 18; intact Estimated Nutritional Goals BEE in Kcals: Using Current wt Calories/Kcals/Kg 25-30kcals/kg Kcals Calculated 1725-2070kcals/day Protein: Using Current wt Protein g/k-1.2g/kg Protein Calculated 69-83g/day Fluid: ml 1725-2070ml/day (1ml/kcal) Nutritional Problem 1. Problem Problem No nutrition diangosis at this time. Intervention/Recommendation Comments Recommend continuing mechanical soft diet Expected Outcomes/Goals Expected Outcomes/Goals PO intake >75% of meals
--- NOTE | 2016-12-31 15:31 | Progress Notes ---
DATE: 12/31/2016 Case was discussed with staff of the patient, reviewed records. The patient was supposed to have been discharged yesterday; however the discharge was upheld. The patient had a red face and she was puffy and started yelling and screaming. She is on Nuedexta, Klonopin, which was upheld, Depakote. Dr. Butcher increased the Seroquel actually on 12/30/2016 to 300 mg twice a day with no side effects, no sedation. I am not sure if the redness is because of the Seroquel; however, it has been upheld and the patient today is a bit calmer, and we will continue to work with the patient in group therapy, milieu therapy, adjust medication as needed. JOB# [id number]
[2016-12-31] MEDS: Benztropine 1 MG TAB PO SCH (20:36)
[2017-01-01] MEDS: Multivitamin w/ Minerals Tab PO SCH (08:24)
[2017-01-01] MEDS: Lactulose 10 Gm/15 mL 30mL UDC PO SCH (08:24)
[2017-01-01] MEDS: Dextromethorphan/Quinidine 20mg/10mg Cap PO SCH (08:24)
[2017-01-01] MEDS: Fenofibrate, Micronized 134 mg Cap PO SCH (08:24)
--- NOTE | 2017-01-01 12:46 | Internal Medicine Prog Note ---
Internal Medicine Subjective - Subjective Patient seen and examined:: with staff, chart reviewed Patient is:: awake, non-verbal, non-interactive, pepe chair, confused, stares blankly Per staff patient has:: no adverse event, confused, tolerating meds Internal Medicine Objective - Results Recent Labs: Laboratory Last Values Valproic Acid 101.1 ug/mL (50.0-100.0) H 12/30/16 08:00 - Physical Exam Vitals and I&O: Vital Signs Temp 97.8 F 01/01/17 05:11 Pulse 67 01/01/17 10:21 Resp 20 01/01/17 10:21 BP 114/71 01/01/17 08:25 Pulse Ox 99 01/01/17 05:11 Intake & Output 12/31/16 01/01/17 01/01/17 18:59 06:59 18:59 Intake Total 1800 120 Balance 1800 120 Intake: Oral 1800 120 Other: # Voids 4 3 # Bowel Movements 1 0 Active Medications: Current Medications Acetaminophen (Tylenol) 650 mg PO Q4HR PRN PRN Reason: Mild Pain / Temp above 100 Stop: 02/14/17 19:51 Al Hydrox/Mg Hydrox/Simethicone (Maalox) 30 ml PO Q4HR PRN PRN Reason: GI DISTRESS Stop: 02/14/17 19:51 Benztropine Mesylate (Cogentin) 1 mg PO HS [facility] Stop: 02/15/17 20:59 Last Admin: 12/31/16 20:36 Dose: 1 mg Cholecalciferol (Vitamin D3) 1,000 iu PO DAILY [facility] Stop: 02/15/17 08:59 Last Admin: 01/01/17 08:24 Dose: 1,000 iu Clonazepam (Klonopin) 0.5 mg PO BID [facility] Stop: 02/28/17 08:59 Last Admin: 01/01/17 08:24 Dose: 0.5 mg Dextromethorphan/Quinidine (Nuedexta 20mg-10mg) 1 cap PO Q12HR [facility] Stop: 02/15/17 08:59 Last Admin: 01/01/17 08:24 Dose: 1 cap Divalproex Sodium (Depakote Dr) 1,000 mg PO BID [facility] PRN Reason: Protocol Stop: 02/15/17 16:59 Last Admin: 01/01/17 08:24 Dose: 1,000 mg Fenofibrate (Tricor) 134 mg PO DAILY [facility] Stop: 02/17/17 08:59 Last Admin: 01/01/17 08:24 Dose: 134 mg Hydrochlorothiazide (Hctz) 25 mg PO DAILY [facility] Stop: 02/24/17 09:14 Last Admin: 01/01/17 08:25 Dose: 25 mg Lactulose (Cephulac) 20 gm PO DAILY [facility] Stop: 02/15/17 08:59 Last Admin: 01/01/17 08:24 Dose: 20 gm Lorazepam (Ativan) 1 mg PO Q6HR PRN; Protocol PRN Reason: Anxiety Stop: 02/14/17 21:38 Last Admin: 12/29/16 03:28 Dose: 1 mg Quetiapine Fumarate (Seroquel) 300 mg PO BID [facility] PRN Reason: Protocol Stop: 02/28/17 08:59 Last Admin: 01/01/17 08:24 Dose: 300 mg Zolpidem Tartrate (Ambien) 5 mg PO HS PRN PRN Reason: Insomnia Stop: 02/14/17 19:51 Last Admin: 12/26/16 20:21 Dose: 5 mg General: demented HEENT: NC/AT, PERRLA, thinning hair, poor dentition Neck: Supple Lungs: CTAB Cardiovascular: RRR, Normal S1, Normal S2, without murmur Abdomen: soft, non-tender, non-distended, positive bowel sound Extremities: excoriation Neurological: muscle weakness, unsteady, unable to follow command - Procedures Procedures: Procedures Procedure Code Date INJECT/INFUSE NEC 99.29 04/12/12 Internal Medicine Assmt/Plan - Assessment Assessment: HYPERLIPIDEMIA COPD HTN ANEMIA MUSCLE WEAKNESS AHD - Plan Plan: fall precaution nutritional support cont on bp meds cpm dw rn Nutritional Asmnt/Malnutr-PDOC - Dietary Evaluation Malnutrition Findings (Please click <Entered> for more info): Nutritional Asmnt/Malnutrition Start: 12/21/16 10: 03 Text: Status: Complete Freq: Document 12/21/16 10:03 GABRIELE (Rec: 12/21/16 10:11 GABRIELE BETTENCOURT- FN) Nutritional Asmnt/Malnutrition Patient General Information Nutritional Screening Moderate Risk Screening Diagnosis Unsp psychosis Pertinent Medical Hx/Surgical Hx COPD, psychosisi, HTN, schizophrenia, anemia Subjective Information Pt unable to carry on a conversation, or answer RD questions appropriately Current Diet Order/ Nutrition Support mechanical soft chopped Patient / S.O Can't verbalize diet edu Pertinent Medications maalox, D3, cogentin, lactulose, MOM Pertinent Labs no labs noted Nutritional Hx/Data Height 1.7 m Height (Calculated Centimeters) 170.2 Current Weight (lbs) 69.4 kg Weight (Calculated Kilograms) 69.4 Weight (Calculated Grams) 04890.6 Recent Weight Change No Weight Status Approriate GI Symptoms GI Symptoms None Food Allergies No Cultural/Ethnic/Spiritism Belief none noted Usual diet at home mechanical soft Skin Integrity/Comment: uriah score 18; intact Estimated Nutritional Goals BEE in Kcals: Using Current wt Calories/Kcals/Kg 25-30kcals/kg Kcals Calculated 1725-2070kcals/day Protein: Using Current wt Protein g/k-1.2g/kg Protein Calculated 69-83g/day Fluid: ml 1725-2070ml/day (1ml/kcal) Nutritional Problem 1. Problem Problem No nutrition diangosis at this time. Intervention/Recommendation Comments Recommend continuing mechanical soft diet Expected Outcomes/Goals Expected Outcomes/Goals PO intake >75% of meals
--- NOTE | 2017-01-01 13:41 | Discharge Summary ---
DATE OF DISCHARGE: 01/01/2017 FINAL DIAGNOSIS/PRIMARY DIAGNOSIS: Unspecified psychosis. SECONDARY DIAGNOSIS: Dementia, moderate to severe, with psychotic features. REASON FOR HOSPITALIZATION: The patient was admitted to the hospital because of increased agitation and irritability and aggressive behavior with staff in the [facility]. HOSPITAL COURSE: The patient continued to be agitated and aggressive. The patient also was having difficulty following any of staff directions. The patient was constantly screaming and yelling and the patient at multiple times during hospitalization, had to be given emergency medication to calm her down. Finally, Seroquel was adjusted and the patient was calmer. She was able to follow directions. She was no yelling or screaming. The patient was discharged from the hospital. While the patient is in the hospital, no major medical problems. AFTER DISCHARGE PLANS: The patient discharged from the hospital and returned to [facility] with plan to continue her treatment as an outpatient. EXPECTED OUTCOME AFTER DISCHARGE: Fair, if the patient continues to take her psychotropic medications and follow up with discharge plans. [facility]# [id number]
== END 2017-01-01 13:40 | DRG 885 ==
LOC: GERO 18:15
PROVIDERS: ADMIT Psychiatry & Neurology Psychiatry; ATTEND Psychiatry & Neurology Psychiatry
DX: F29 Unspecified psychosis not due to a substance or known physiological condition (principal); F03.91 Unspecified dementia, unspecified severity, with behavioral disturbance; F20.9 Schizophrenia, unspecified; E78.5 Hyperlipidemia, unspecified; J44.9 Chronic obstructive pulmonary disease, unspecified; I10 Essential (primary) hypertension; D64.9 Anemia, unspecified; M62.81 Muscle weakness (generalized); Z88.0 Allergy status to penicillin
CPT/HCPCS: 36415-UA; 80164-TC; 94760; G0410; J1200; J1630; J2060; Z7610